=== PATIENT | female | born 1975 | race Caucasian/White ===

== ENCOUNTER 2021-11-14 02:28 | Emergency (ER) | payer OTHER, SELFPAY ==
--- NOTE | ~2021-11-14 | CT_ITS ---
EXAMINATION: CT ABDOMEN AND PELVIS WITHOUT CONTRAST CLINICAL INFORMATION: Right upper quadrant pain. Elevated liver function tests. COMPARISON: None TECHNIQUE: Multidetector volumetric imaging was performed from the superior aspect of the liver through the pubic symphysis. Sagittal and coronal reformatted images were obtained on the technologist's workstation. This CT examination was performed using dose optimization techniques as appropriate, variously including the following: *Automated exposure control *Adjustment of mA and/or kV according to patient size (this includes techniques or standardized protocols for targeted exams where dose is matched to indication/reason for exam; i.e. extremities or head) *Use of iterative reconstruction technique DLP: 510 mGy-cm FINDINGS: LUNG BASES: The visualized lung bases are unremarkable. Evaluation limited without intravenous contrast. LIVER, GALLBLADDER, AND BILIARY TREE: Hepatomegaly, right lobe measuring 23.3 cm craniocaudal. There are innumerable hypodense lesions diffusely through the liver, involving a significant portion of the liver parenchyma. This includes a large area of confluent hypodensity in the right lobe measuring 13.5 x 9.8 cm, image 3:20 . Hounsfield measurements are greater than simple fluid. No evidence of intrahepatic or extrahepatic biliary duct dilatation. The gallbladder is unremarkable with no evidence of radiopaque gallstones, gallbladder wall thickening, or obvious pericholecystic inflammatory changes. PANCREAS: Grossly unremarkable. No inflammatory changes seen. SPLEEN: Unremarkable. ADRENAL GLANDS: The right adrenal gland is not well seen. Slightly bulky appearance of the left adrenal gland. KIDNEYS AND URETERS: There is a 8 mm exophytic lesion in the midpole right kidney, indeterminate. Mild bilateral perinephric stranding. No renal or ureteral calculi. No hydronephrosis. BLADDER: Partially distended. There is apparent wall prominence/thickening of the anterior aspect of the urinary bladder, including seen on the sagittal sequences, which could be related to lack of distention versus other etiologies. GASTROINTESTINAL TRACT AND PERITONEUM: There is a large hypodense mass within the lower abdomen and pelvis. This measures 12.3 x 11.9 x 14.1 cm. (AP, transverse, craniocaudal). Hounsfield measurements ranging from 23-25. There are multiple foci of more hyperdense attenuation centrally within the lesion.. This includes a focus measuring 4.2 x 3.5 cm, image 3:59, Hounsfield measurements 42. The etiology of this complex mass has not been determined. The stomach is partially distended. No dilated small or large bowel loops is seen. No free fluid. The appendix is not clearly visualize. ABDOMINAL WALL: No significant hernia is appreciated. LYMPH NODES: No enlarged lymph nodes identified in the retroperitoneum, pelvis or abdomen. VASCULAR: Normal caliber aorta. Scattered atherosclerotic calcification. PELVIC VISCERA: Uterus is within limits for CT. 2.1 cm cystic focus in the left adnexa, probably ovarian in nature. OSSEOUS STRUCTURES: No acute or suspicious osseous abnormality seen. CT/CT abdomen pelvis wo con IMPRESSION: 1. Hepatomegaly. Innumerable hypodense lesions diffusely through the liver. Etiology of the lesion does not been determined. Differential considerations are broad including neoplastic etiologies. Further workup is needed. Recommend further evaluation with MRI without and with contrast. 2. There is a large complex hypodense mass in the abdomen and pelvis measuring 12.3 x 11.9 x 14.1 cm, with Hounsfield measurements greater than simple fluid. There are slightly more hyperdense areas present within this, described above. This of indeterminate etiology, and further evaluation is recommended. Further workup is needed. Recommend further evaluation with MRI without and with contrast. 3. There is a 2.1 cm cystic focus in the left adnexa probably ovarian in nature. 4. Indeterminate 8 mm right renal exophytic lesion. 5. Apparent wall thickening of the anterior aspect of the urinary bladder. This result was discussed with Dr. Franklin at 8:12 AM on 11/14/2021 and it was ascertained that the content and urgency of the report was understood at the time of direct communication. Fleischner guidelines were followed.
[2021-11-14 02:31] VITALS: BP 150/79; PULSE 120; RESP 20; TEMP 36.2; O2SAT 100; BMI 30.7
--- NOTE | 2021-11-14 03:39 | ED_ITS ---
HPI - Abdominal Pain General Chief Complaint: Abdominal Pain Stated Complaint: growth on abdomen for 3 months, pain on ribs Time Seen by Provider: 11/14/21 03:31 Source: patient Mode of arrival: ambulatory Limitations: no limitations History of Present Illness HPI narrative: Patient comes emergency room complaining of abdominal distension for 3 months. Patient states another pressure is causing her to have rib discomfort. Patient states that she has not had any nausea vomiting or diarrhea, no UTI symptoms. H owever, patient states that she drinks anywhere from 6 to 12 beers every day, states that this has been ongoing most of her life. Patient denies any diagnosis of cirrhosis. And drugs Related Data Allergies Allergy/AdvReac Type Severity Reaction Status Date / Time No Known Allergies Allergy Verified 11/14/21 02:39 Review of Systems Review of Systems Constitutional : No Weight loss, No Fever, No Chills, No Night Sweats, No Fatigue, No Malaise ENT/Mouth : No Hearing loss, No Ear Pain, No Nasal Congestion, No Sinus Pain, No Hoarseness, No sore throat, No Rhinorrhea, No Swallowing Difficulty Eyes: No Eye Pain, No Swelling, No Redness, No Foreign Body, No Discharge, No Vision Changes Cardiovascular : No Chest Pain, No SOB, No Dyspnea on Exertion, No Orthopnea, No Edema, No Palpitations Respiratory : No Cough, No Sputum, No Wheezing, No Smoke Exposure, No Dyspnea Gastrointestinal : No Nausea, No Vomiting, No Diarrhea, No Constipation, complaining of abdominal distension, No Hematochezia, No Melena Genitourinary : no irregular bleeding, No Dysuria, No Urinary Frequency, No Hematuria, No Urinary Incontinence, No Urgency, No Flank Pain, No Urinary Flow Changes, No Hesitancy Musculoskeletal : No joint pain, No Myalgias, No Joint Swelling Skin : No Skin Lesions, No rash Neuro : No Weakness, No Numbness, No Paresthesias, No Loss of Consciousness, No Dizziness, No Headache Psych : No Anxiety/Panic, No Depression, No SI/HI/AH/VH, No Social Issues, Heme/Lymph: No Bruising, No Bleeding,No Lymphadenopathy Endocrine : No Polyuria, No Polydipsia, No Temperature Intolerance Physical Exam Verdana 4l Vital Signs: Verdana 4d Verdana 4d Vital Signs: Verdana 4d Verdana 4Bd Last Vital Signs Verdana 4d Tie Buyer New 4d Tie Buyer New 4d Temp 98.3 F 11/14/21 05:40 Tie Buyer New 4d Pulse 112 H 11/14/21 05:40 Tie Buyer New 4d Resp 19 11/14/21 05:40 BP 128/72 11/14/21 05:40 Pulse Ox 98 11/14/21 05:40 BMI result Body Mass Index 30.7 Const: Other: Appearance: Alert. Oriented X3. No acute distress. Eyes: Pupils equal, round and reactive to light. ENT: Pharynx normal. Neck: Normal inspection. Neck supple. No lymph nodes noted. No crepitus CVS: Normal heart rate and rhythm. Pulses normal. Normal S1 and S2 Respiratory: No respiratory distress. Breath sounds normal. No Wheezing. No rales Abdomen: Moderately distended, nontender, the liver seems to be fairly enlarged. Bedside ultrasound shows no significant amount of ascites that could possibly be drained and the liver looks nodulare Skin: Skin warm and dry. Normal skin color. Normal skin turgor. Extremities: No lower extremity edema. No Lacerations. No Rash Neuro: Oriented X 3. No motor deficit. No sensory deficit. Moving all extermities. No slurred speech. Course Course Course Narrative: I discussed with the patient that her hemoglobin is 7.0. Patient states that she is known to be anemic. Patient states that at this time she does not want to be transfused, declined blood transfusion. Patient denies heavy vaginal bleeding. Guaiac stool test negative. Abdominal CT scan pending. Patient will likely need Gastroenterology follow-up. Given the appearance of the liver on bedside ultrasound and the LFT elevation, it is likely the patient has cirrhosis Sign-out given to Dr. Pascual [facility] - Abdominal Pain Lab Data Result diagrams: 11/14/21 Unknown 11/14/21 Unknown Labs: Lab Results 11/14/21 11/14/21 11/14/21 Range/Units 04:52 05:12 Unknown WBC 13.9 H (4.8-10.8) X10*3/uL RBC 3.32 L (4.20-5.50) X10*6/uL Hgb 7.0 L* (12.0-16.0) g/dl Hct 25.3 L (37.0-47.0) % MCV 76.2 L (80.0-98.0) fL MCH 21.1 L (27.0-33.0) pg MCHC 27.7 L (31.0-35.0) g/dl RDW 21.1 H (11.0-16.0) % Plt Count 419 H (160-400) X10*3/uL MPV 9.9 (9.4-12.3) fL Immature Gran % (Auto) 1.2 H (0.0-0.4) % Neut % (Auto) 81.5 H (45-73) % Lymph % (Auto) 9.2 L (20-40) % Camp % (Auto) 5.8 (2-11) % Eos % (Auto) 0.9 (0-4) % Baso % (Auto) 1.4 (0-2) % Lymph # (Auto) 1.3 (1.2-4.9) X10*3/uL Camp # (Auto) 0.8 (0.1-1.2) X10*3/uL Eos # (Auto) 0.1 (0.0-0.4) X10*3/uL Baso # (Auto) 0.2 (0.0-0.2) X10*3/uL Abs Immat Gran (auto) 0.16 H (0.00-0.03) X10*3/uL Absolute Neuts (auto) 11.3 H (2.0-8.3) x10*3/uL Absolute Nucleated RBC 0.030 H (0.0-0.012) X10*3/uL Nucleated RBC % (auto) 0.2 (0.0-0.2) /100WBC Sodium (135-145) mmol/L Potassium (3.3-5.1) mmol/L Chloride (96-108) mmol/L Carbon Dioxide (22-29) mmol/L Anion Gap (12-20) BUN (9-16) mg/dL Creatinine (0.5-1.4) mg/dL Estim Creat Clear Calc Estimated GFR Random Glucose (60-115) mg/dL Calcium (8.4-10.2) mg/dL Total Bilirubin (0.0-1.0) mg/dL Direct Bilirubin (0.0-0.5) mg/dL AST (5-31) U/L ALT (0-31) U/L Alkaline Phosphatase (39-117) U/L Total Protein (6.5-8.0) g/dL Albumin (3.5-5.0) g/dL Lipase (8-78) U/L Stool Occult Blood NEGATIVE (NEGATIVE) Blood Type O Positive Antibody Screen NEGATIVE 11/14/21 Range/Units Unknown WBC (4.8-10.8) X10*3/uL RBC (4.20-5.50) X10*6/uL Hgb (12.0-16.0) g/dl Hct (37.0-47.0) % MCV (80.0-98.0) fL MCH (27.0-33.0) pg MCHC (31.0-35.0) g/dl RDW (11.0-16.0) % Plt Count (160-400) X10*3/uL MPV (9.4-12.3) fL Immature Gran % (Auto) (0.0-0.4) % Neut % (Auto) (45-73) % Lymph % (Auto) (20-40) % Camp % (Auto) (2-11) % Eos % (Auto) (0-4) % Baso % (Auto) (0-2) % Lymph # (Auto) (1.2-4.9) X10*3/uL Camp # (Auto) (0.1-1.2) X10*3/uL Eos # (Auto) (0.0-0.4) X10*3/uL Baso # (Auto) (0.0-0.2) X10*3/uL Abs Immat Gran (auto) (0.00-0.03) X10*3/uL Absolute Neuts (auto) (2.0-8.3) x10*3/uL Absolute Nucleated RBC (0.0-0.012) X10*3/uL Nucleated RBC % (auto) (0.0-0.2) /100WBC Sodium 138 (135-145) mmol/L Potassium 4.4 (3.3-5.1) mmol/L Chloride 103 (96-108) mmol/L Carbon Dioxide 18 L (22-29) mmol/L Anion Gap 21 H (12-20) BUN 6 L (9-16) mg/dL Creatinine 0.67 (0.5-1.4) mg/dL Estim Creat Clear Calc 109.8 Estimated GFR > 60 Random Glucose 125 H (60-115) mg/dL Calcium 9.5 (8.4-10.2) mg/dL Total Bilirubin 0.4 (0.0-1.0) mg/dL Direct Bilirubin 0.2 (0.0-0.5) mg/dL AST 276 H (5-31) U/L ALT 50 H (0-31) U/L Alkaline Phosphatase 364 H (39-117) U/L Total Protein 7.5 (6.5-8.0) g/dL Albumin 4.0 (3.5-5.0) g/dL Lipase 42 (8-78) U/L Stool Occult Blood (NEGATIVE) Blood Type Antibody Screen Discharge Plan Discharge Clinical Impression: Cirrhosis Patient Disposition: Still a Patient [facility] Past Medical History Medical History (Updated 11/14/21 @ 06:12 by Anne Marie Lin MD) Alcohol abuse No known health problems Social History Social History Patient Tobacco Use Status: Current everyday Tobacco user Use of substances other than those prescribed or required for medical reasons: No Advance Directives: No Patient : No
[2021-11-14 04:03] LABS: MANUAL DIFF FLAG NO
[2021-11-14 04:04] LABS: Basophils Absolute Auto 0.2 X10*3/uL (0.0-0.2); Basophils Percent Auto 1.4 % (0-2); Eosinophils Absolute Auto 0.1 X10*3/uL (0.0-0.4); Eosinophils Percent Auto 0.9 % (0-4); Hematocrit 25.3 % (37.0-47.0); Imm Gran Abs Auto 0.16 X10*3/uL (0.00-0.03); Imm Gran Pct Auto 1.2 % (0.0-0.4); Lymphocytes Absolute Auto 1.3 X10*3/uL (1.2-4.9); Lymphocytes Percent Auto 9.2 % (20-40); Mean Corpuscular HGB Conc 27.7 g/dl (31.0-35.0); Mean Corpuscular Hemoglobin 21.1 pg (27.0-33.0); Mean Corpuscular Volume 76.2 fL (80.0-98.0); Mean Platelet Volume 9.9 fL (9.4-12.3); Monocytes Absolute Auto 0.8 X10*3/uL (0.1-1.2); Monocytes Percent Auto 5.8 % (2-11); NRBC Pct Auto 0.2 /100WBC (0.0-0.2); Neutrophils Absolute Auto 11.3 x10*3/uL (2.0-8.3); Neutrophils Percent Auto 81.5 % (45-73); Platelet Count 419 X10*3/uL (160-400); Red Blood Count 3.32 X10*6/uL (4.20-5.50); Red Cell Distribution Width 21.1 % (11.0-16.0); White Blood Count 13.9 X10*3/uL (4.8-10.8)
[2021-11-14 04:30] LABS: Alanine Aminotransferase 50 U/L (0-31); Alkaline Phosphatase 364 U/L (39-117); Anion Gap 21 (12-20); Aspartate Amino Transferase 276 U/L (5-31); Bilirubin Direct 0.2 mg/dL (0.0-0.5); Bilirubin Total 0.4 mg/dL (0.0-1.0); Blood Urea Nitrogen 6 mg/dL (9-16); Calcium 9.5 mg/dL (8.4-10.2); Carbon Dioxide 18 mmol/L (22-29); Chloride 103 mmol/L (96-108); Creatinine Clr Calc Pharmacy 109.8; Estimated Glomerular Filt Rate > 60; Glucose Random 125 mg/dL (60-115); Lipase 42 U/L (8-78); Potassium 4.4 mmol/L (3.3-5.1); Sodium 138 mmol/L (135-145); Total Protein 7.5 g/dL (6.5-8.0)
[2021-11-14 05:19] LABS: OBS Int Ctl Valid YES; OBS1 NEGATIVE (NEGATIVE)
[2021-11-14 05:40] VITALS: BP 128/72; PULSE 112; RESP 19; TEMP 36.8; O2SAT 98
--- NOTE | 2021-11-14 06:42 | PC.NURSE ---
pt is aware she need blood but at this time is refusing blood transfusion. provider is aware.
--- NOTE | 2021-11-14 06:43 | PC.NURSE ---
attempt to collect urine pt unable to void.
[2021-11-14 08:00] VITALS: BP 169/83; PULSE 120; RESP 18; TEMP 36.8; O2SAT 97
[2021-11-14 12:26] LABS: Iron 23 mcg/dL (30-160); Percent Iron Saturation 5 % (15-50); Total Iron Binding Capacity 503 mcg/dL (228-428); Unsaturated Iron Binding 480 ug/dL
[2021-11-14 12:57] LABS: Ferritin 74 ng/mL (10-250)
[2021-11-14 13:00] LABS: Folate 7.5 ng/mL (> or = 4.0); Vitamin B12 456 pg/mL (200-900)
[2021-11-14 13:31] LABS: Lactate Dehydrogenase 3646 U/L (122-220)
[2021-11-17 07:27] LABS: CA-125 84 U/mL (<35)
== END 2021-11-14 09:54 | disposition home or self-care (01) ==
PROVIDERS: Emergency Medicine; Internal Medicine Medical Oncology; Emergency Provider Emergency Medicine Emergency Medical Services
DX: R19.00 Intra-abdominal and pelvic swelling, mass and lump, unspecified site (principal); K76.9 Liver disease, unspecified; K74.60 Unspecified cirrhosis of liver; D64.9 Anemia, unspecified; R79.89 Other specified abnormal findings of blood chemistry; F17.200 Nicotine dependence, unspecified, uncomplicated; F10.10 Alcohol abuse, uncomplicated
CPT/HCPCS: 36415; 74176; 80048; 80076; 82272; 82378; 82607; 82728; 82746; 83540; 83615; 83690; 85025; 86304; 86850; 86900; 86901; 99284

== ENCOUNTER 2021-11-15 14:04 | Day surgery (SDC) | payer OTHER, SELFPAY ==
[2021-11-15] VITALS (7 sets, daily range): BP systolic 122–134; BP diastolic 58–68; PULSE 108–116; RESP 20; TEMP 37.2–37.3; O2SAT 94–96; BMI 23.6
--- NOTE | ~2021-11-15 | US_ITS ---
EXAMINATION: ULTRASOUND-GUIDED LIVER BIOPSY CLINICAL INFORMATION: Liver lesions. COMPARISON: Previous CT of the abdomen and pelvis from yesterday. TECHNIQUE: Procedure and risks and benefits including bleeding and infection were discussed with the patient and informed consent was obtained. The right upper quadrant was prepped and draped in the usual sterile fashion. The skin and soft tissues were anesthetized with 1% lidocaine plain. Using ultrasound guidance and a coaxial system, access to a lesion in the right lobe of the liver was obtained. 5 x 20 gauge core biopsies were obtained. There is no complication. The patient received Versed 3 mg and fentanyl 150 mcg intravenously during the procedure. Total sedation time was 20 minutes. FINDINGS: There is a 6 cm hyperechoic lesion in the right lobe of the liver that was targeted for biopsy. US/US biopsy liver IMPRESSION: Ultrasound-guided liver biopsy.
[2021-11-15 15:09] LABS: Prothrombin Time 11.8 SEC (9.9-13.0)
[2021-11-15 15:12] LABS: Partial Thromboplastin Time 27.6 SEC (24.1-38.0)
--- NOTE | 2021-11-15 16:19 | HO.RADPN ---
RADIOLOGY Narrative Narrative: Right lobe liver biopsy using coaxial system. 4 20 g core biopsies obtained. No complication.
[2021-11-15] MEDS: Lidocaine HCl 1 % MPF 5 ML VIAL 4 ML SUBCUT (16:21)
== END 2021-11-15 18:27 | disposition home or self-care (01) ==
PROVIDERS: Radiology Diagnostic Radiology; Visit Provider Internal Medicine Medical Oncology
DX: K76.9 Liver disease, unspecified (principal); F10.10 Alcohol abuse, uncomplicated; D64.9 Anemia, unspecified; F17.210 Nicotine dependence, cigarettes, uncomplicated
CPT/HCPCS: 36415; 47000; 76942; 85610; 85730; 88307; 88313; 88341; 88342; 88360; 99152; 99153; J2250; J3010

== ENCOUNTER 2021-12-05 13:06 | Outpatient (REF) | payer OTHER, SELFPAY ==
--- NOTE | ~2021-12-05 | CT_ITS ---
EXAMINATION: CT CHEST WITH CONTRAST CLINICAL INFORMATION: Liver lesions. Small cell cancer. COMPARISON: Previous chest x-ray most recent September 2015 TECHNIQUE: Multidetector volumetric CT imaging of the chest was obtained after the administration of 85 mL of Omnipaque 350 intravenous contrast without immediate adverse reactions. Axial MIP volume rendering provided. Sagittal and coronal reformatted images were obtained. This CT examination was performed using dose optimization techniques as appropriate, variously including the following: *Automated exposure control *Adjustment of mA and/or kV according to patient size (this includes techniques or standardized protocols for targeted exams where dose is matched to indication/reason for exam; i.e. extremities or head) *Use of iterative reconstruction technique DLP: 150 mGy-cm FINDINGS: LUNGS: There is a mass and secondary tarsal collapse or atelectasis of the left upper lobe. Much of this represents a central mass versus atelectasis is uncertain. Best estimate of size is 4.1 x 5.4 cm in transverse and AP dimension axial image 21 series 3 and 4.7 cm in longitudinal dimension axial image 27 series 6. This extends centrally to the left pulmonary hilum. There is narrowing of the left upper lobe bronchi. This bulges the fissure. There is scarring or atelectasis in the right upper lobe. MEDIASTINUM: There are multiple enlarged mediastinal lymph nodes. Largest mediastinal node is a right paratracheal and precarinal lymph node measuring 3.4 cm in short axis axial image 19 series 3. There are enlarged left hilar lymph nodes largest measuring 2 cm in short axis axial image 22 series 3. No right hilar adenopathy is seen. There is question of enlarged left internal mammary lymph node versus mediastinal lymph node or mass measuring 1.5 x 2 cm axial image 15 series 3. The heart does not appear enlarged. There is no pericardial effusion. The thoracic aorta is normal in caliber. There is narrowing of the left upper lobe pulmonary artery from the mass. PLEURA: There is no pleural effusion. No pleural mass or thickening. AXILLA: No chest wall mass or enlarged axillary lymph nodes are seen. UPPER ABDOMEN: See CT of the abdomen and pelvis of the same day OSSEOUS STRUCTURES: There is a subcentimeter faintly sclerotic lesion in the right T11 vertebral body CT/CT chest w con IMPRESSION: Large central left upper lobe mass and partial left upper lobe atelectasis. Enlarged mediastinal and left hilar lymph nodes. Subcentimeter faintly sclerotic lesion in the right T11 vertebral body questionable for metastatic disease. Fleischner guidelines were followed.
--- NOTE | ~2021-12-05 | CT_ITS ---
EXAMINATION: CT ABDOMEN AND PELVIS WITH CONTRAST CLINICAL INFORMATION: Metastatic small cell lung cancer. Ovarian mass. COMPARISON: Previous CT of the abdomen and pelvis 11/14/2021 TECHNIQUE: Multidetector volumetric images were obtained from the superior aspect of the liver through the pubic symphysis following administration 85 mL of Omnipaque 350 intravenous contrast. Sagittal and coronal reformatted images were obtained on the technologist's workstation. Oral contrast: Yes This CT examination was performed using dose optimization techniques as appropriate, variously including the following: *Automated exposure control *Adjustment of mA and/or kV according to patient size (this includes techniques or standardized protocols for targeted exams where dose is matched to indication/reason for exam; i.e. extremities or head) *Use of iterative reconstruction technique DLP: 340 mGy-cm FINDINGS: LUNG BASES: The visualized lung bases are unremarkable. LIVER, GALLBLADDER, AND BILIARY TREE: The liver is enlarged. There are innumerable low-attenuation liver lesions suggestive of metastatic disease. Largest lesion in the left lobe measures 5 x 6 cm axial image 41 series 3. Largest lesion in the right lobe measures 6.4 x 7.4 cm axial image 32 series 3. This does not appear appreciably changed from previous exam 11/14/2021. Gallbladder is not seen. There is no biliary duct dilatation. PANCREAS: Unremarkable. SPLEEN: Unremarkable. ADRENAL GLANDS: Unremarkable. KIDNEYS AND URETERS: There is a 1 cm lesion exophytic to the lateral right kidney. Hounsfield units following contrast measure 50 and this is not compatible with a simple cyst. Appearance is concerning for metastatic disease. There is similar finding seen on the left with 8 mm lesion exophytic to the lateral left kidney axial image 32 series 3 there are bilateral small perineal nodules in the perinephric fat suggestive of metastatic metastatic disease.. BLADDER: Not optimally distended. GASTROINTESTINAL TRACT: The small and large bowel are unremarkable. The appendix is not seen. The stomach is unremarkable. ABDOMINAL WALL: There is a 1 cm nodule just deep to the right lower abdominal wall just superior to the pubic symphysis axial image 81 series 3 worrisome for peritoneal disease. No hernia is seen. LYMPH NODES: There are small retroperitoneal lymph nodes in the abdomen. No enlarged lymph nodes are seen. VASCULAR: There is evidence of mild atherosclerotic disease. PELVIC VISCERA: The uterus is normal appearing. The complex cystic large right ovarian mass does not appear appreciably changed measuring 15 cm. There is a multi loculated or complex cystic lesion in the left adnexa posterior to the uterus. There may be some surrounding ascites and measuring this lesion is difficult. Best estimate lesion size is a 3.4 x 6.2 cm axial image 78 series 3. There is a 2 cm soft tissue mass in the right posterior pelvis axial image 81 series 3 also concerning for peritoneal disease. OSSEOUS STRUCTURES: There is a 5 mm lytic lesion or lucency in the right iliac bone axial image 64 series 3. No other focal bone lesion is seen. CT/CT abdomen pelvis w con IMPRESSION: Enlarged liver with innumerable low-attenuation liver lesions suggestive of metastatic disease. Bilateral renal lesions and perinephric nodules also most likely representing metastatic disease. A primary renal neoplasm cannot be excluded with certainty. Soft tissue nodules just deep to the low right anterior abdominal wall superior to the pubic symphysis and at 2 cm lesion in the right pelvis suggestive of peritoneal disease. Bilateral complex cystic ovarian lesions. These do not appear appreciably changed from 11/14/2021 exam. Differential would include metastatic disease to the ovaries and primary ovarian neoplasm. Probable small amount of ascites in the pelvis. Fleischner guidelines were followed.
[2021-12-05] MEDS: Barium Sulfate Oral (Mocha) 450 ML ORAL.SUSP 900 ML PO (15:55)
[2021-12-05] MEDS: iohexoL 350 MG/ML 100 ML INFUS..BTL 85 ML IV (15:56)
== END 2021-12-05 13:07 | disposition home or self-care (01) ==
LOC: HO.CT 13:06
PROVIDERS: Visit Provider Internal Medicine Medical Oncology
DX: K76.9 Liver disease, unspecified (principal); N83.8 Other noninflammatory disorders of ovary, fallopian tube and broad ligament; C34.92 Malignant neoplasm of unspecified part of left bronchus or lung
CPT/HCPCS: 71260; 74177; Q9967

== ENCOUNTER 2021-12-11 16:17 | Emergency (ER) | payer OTHER, SELFPAY ==
[2021-12-11] VITALS (8 sets, daily range): BP systolic 111–128; BP diastolic 60–70; PULSE 104–116; RESP 14–22; TEMP 36.7–36.8; O2SAT 93–95; BMI 26.9
--- NOTE | ~2021-12-11 | US_ITS ---
EXAMINATION: US VENOUS ULTRASOUND WITH DOPPLER LOWER EXTREMITY, BILATERAL CLINICAL INFORMATION: Ovarian cancer with leg edema COMPARISON: CT abdomen pelvis 12/05/2021 TECHNIQUE: Ultrasound of the deep veins is performed from the hip to the calf with compression sonography and color and pulse Doppler assessment. Spectral analysis with color-flow imaging is performed. FINDINGS: RIGHT: There is normal venous compression and respiratory variation and augmented flow. The visualized common femoral vein, superficial femoral vein, profunda femoral vein, popliteal vein, and the trifurcation region shows no evidence of deep venous thrombosis. There is no significant popliteal fossa cyst. There is soft tissue edema in the calf soft tissues. LEFT: There is normal venous compression and respiratory variation and augmented flow. The visualized common femoral vein, superficial femoral vein, profunda femoral vein, popliteal vein, and the trifurcation region shows no evidence of deep venous thrombosis. There is no significant popliteal fossa cyst. There is soft tissue edema in the calf soft tissues. If the patient's symptoms persist, followup ultrasound in 5 days 7 days might be of value to exclude proximal propagation from a non-visualized calf vein. US/US venous duplex LE BI IMPRESSION: No DVT demonstrated in the bilateral lower extremity.
--- NOTE | 2021-12-11 16:34 | ED_ITS ---
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 and kidney symptoms for last 4 months final diagnosis was made on 11/14 with chronic anemia received blood transfusion last month sent by oncologist for hemoglobin of 6.1 patient feel tired and weak also complaining of increased leg swelling for last few days patient also does have a lung lesion possible small cell carcinoma of lung Related Data Previous Rx's Medication Instructions Recorded lorazepam 0.5 mg tablet (Ativan) 0.5 mg PO BEDTIME PRN #30 tab 11/15/21 ondansetron 8 mg disintegrating 8 mg PO Q8H #50 tab 11/15/21 tablet oxycodone 5 mg tablet 5 mg PO BID PRN #30 tab 11/24/21 oxycodone 5 mg tablet 5 mg PO Q4H PRN #42 tab 12/07/21 ferrous sulfate 324 mg (65 mg 324 mg PO DAILY #90 tab 12/11/21 iron) tablet,delayed release furosemide 20 mg tablet (Lasix) 20 mg PO QAM #30 tab 12/11/21 Allergies Allergy/AdvReac Type Severity Reaction Status Date / Time No Known Allergies Allergy Verified 12/11/21 15:38 Review of Systems Review of Systems: Yes all other systems are reviewed and are negative PMFSH Past Medical History Medical History Alcohol abuse Female bladder prolapse No known health problems Surgical History History of Family History Family History Mother Breast cancer Sister Uterine cancer Social History Social History Household Members: Children Housing: Apartment Are you a primary health care administrator to a significant other at home: No Do you presently have visiting nurse or other home services: No Patient Tobacco Use Status: Current everyday Tobacco user Cigarette Packs Per Day: 1 Advance Directives: No Advance Directives Information Provided: No service: No Current occupational status: employed 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 Oriented X3. No acute distress. Eyes: Pallor++ ENT: Pharynx normal. Oral Mucosa moist Neck: Normal inspection. Neck supple. CVS: Normal heart rate and rhythm. Pulses normal. Respiratory: No respiratory distress. Equal air entry bilateral, no wheezing/rales/rhonchi Abdomen: Soft distended tenderness and right upper quadrant, Bowel sounds are present hepatomegaly, no CVA tenderness Skin: Skin warm and dry. Normal skin color. Normal skin turgor. Extremities:4+ lower extremity edema. No calf tenderness Eben sign neg Neuro: Oriented X 3. MDM - Recheck/Abnormal Lab/Rx MDM Narrative Medical decision making narrative: Patient's severe anemia of chronic disease with history of ovarian cancer and Mets to liver possible lung cancer sent by oncologist for blood transfusion patient was given 2 units of blood in the ER feels much better also has swelling of the legs will discharge her on Lasix, venous Doppler negative for DVT Medical Records Attestation: I reviewed the patient's medical records. Lab Data Attestation: I reviewed the patient's lab results. Labs: Lab Results 12/11/21 12/11/21 Range/Units 16:45 16:46 D-Dimer High Sensitivty 928 NG/ML Blood Type O Positive Antibody Screen NEGATIVE Crossmatch See Detail Discharge Plan Discharge Clinical Impression: Anemia Qualifiers: Anemia type: other cause Other causes of anemia: other cause, not classified Qualified Code(s): D64.89 - Other specified anemias Patient Disposition: Home, Self-Care Instructions: Anemia (ED) Additional Instructions: Follow-up with your oncologist Start taking iron pills daily And water pill for increased leg swelling Prescriptions: New ferrous sulfate 324 mg (65 mg iron) tablet,delayed release (DR/EC) 324 mg PO DAILY Qty: 90 0RF furosemide [Lasix] 20 mg tablet 20 mg PO QAM Qty: 30 0RF No Action ondansetron 8 mg Tablet,Disintegrating 8 mg PO Q8H Qty: 50 5RF lorazepam [Ativan] 0.5 mg Tablet 0.5 mg PO BEDTIME PRN (Reason: Anxiety) Qty: 30 0RF oxycodone 5 mg Tablet 5 mg PO BID PRN (Reason: Breakthrough Pain, Severe) Qty: 30 0RF oxycodone 5 mg Tablet 5 mg PO Q4H PRN (Reason: Breakthrough Pain, Moderate) Qty: 42 0RF Interventions: ED Discharge Assessment Last Done: 12/12/21 00:11 Discharge Date/Time: 12/12/21 00:11
[2021-12-11 17:10] LABS: D Dimer High Sensitivity 928 NG/ML
[2021-12-11] MEDS: LORazepam 2 MG/ML VIAL 1 MG IVPUSH (17:14)
[2021-12-11] MEDS: Furosemide 20 MG/2 ML VIAL IVPUSH (21:33)
[2021-12-12] MEDS: Ferrous Sulfate 324 MG TABLET.DR PO (00:12)
== END 2021-12-12 00:11 | disposition home or self-care (01) ==
PROVIDERS: Emergency Provider Internal Medicine
DX: C56.9 Malignant neoplasm of unspecified ovary (principal); D63.0 Anemia in neoplastic disease; C78.7 Secondary malignant neoplasm of liver and intrahepatic bile duct; C79.00 Secondary malignant neoplasm of unspecified kidney and renal pelvis; R53.1 Weakness; R60.0 Localized edema; F17.200 Nicotine dependence, unspecified, uncomplicated
CPT/HCPCS: 36415; 36430; 85379; 86850; 86900; 86901; 86923; 93970; 96374; 96375; 99283; 99285; J1940; J2060; P9016

== ENCOUNTER 2021-12-19 10:25 | Day surgery (SDC) | payer OTHER, SELFPAY ==
[2021-12-19] VITALS (10 sets, daily range): BP systolic 106–119; BP diastolic 54–75; PULSE 94–107; RESP 14–18; TEMP 36.3–36.7; O2SAT 94–97; BMI 26.9
--- NOTE | 2021-12-19 11:44 | HO.ANESPROP2 ---
HPI - Anesthesia Eval Consult details Narrative: Liver lesion, anemia PMFSH Active Problems Active Problems: All Active Problems (Updated 12/13/21 @ 00:00 by Taya Parks) Liver lesion (Acute) Anemia (Acute) Past Medical History Medical History Alcohol abuse Female bladder prolapse No known health problems Family History Family History (Updated 12/18/21 @ 14:32 by Gilda Aldana CMA) Mother Breast cancer Sister Uterine cancer Paternal Grandmother Cancer Father Diabetes Father HTN (hypertension) Family history of problems with anesthesia: No Surgical History Surgical History History of History of Problems with Anesthesia: No Social History Social History (Updated 12/18/21 @ 14:33 by Gilda Aldana CMA) Household Members: Children Housing: Apartment Are you a primary early breastfeeding care specialist to a significant other at home: No Do you presently have visiting nurse or other home services: No Patient Tobacco Use Status: Current everyday Tobacco user Tobacco use type: Cigarette Cigarette Packs Per Day: 1 Cigarettes Per Day: 20.0 Use of substances other than those prescribed or required for medical reasons: No Are you DNR?: No Advance Directives: No Advance Directives Information Provided: Yes Advance Directives on File: No service: No Current occupational status: employed 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 Allergies Allergy/AdvReac Type Severity Reaction Status Date / Time No Known Allergies Allergy Verified 12/18/21 14:33 Exam Exam Date and Time: December 19, 2021 1144 Height,Weight and Vital Signs: Height 5 ft 5 in Weight 73.482 kg Last Vital Signs Temp 97.8 F 12/19/21 10:44 Pulse 105 H 12/19/21 10:44 Resp 18 12/19/21 10:44 BP 118/71 12/19/21 10:44 Pulse Ox 96 12/19/21 10:44 Airway Mallampati Class: II TM Dist: >3cm Neck ROM: Full Loose/Missing/Broken Teeth: Yes Heart: [id number] Lungs: cta b/l Assessment and Plan Assessment Anesthesia Assessment: Anesthesia Plan Discussed and Chart Reviewed Final Anesthetic Review Family History of Problems with Anesthesia: No History of Problems with Anesthesia: No NPO: Yes ASA Class: III Final Preanesthetic Review: No Changes in Pt Med Stat, Meds/Allgs Chart Reviewed, Consent Obtained/Reviewed and Anes Risks/Benef Reviewed Patient Risk: Intermediate Procedure Risk: Low Assessment/Block/Sedation in SS: Assess/Block/Sedation-SS Anesthetic Plan Anesthetic Plan: MAC: and Agree w/ Assess. and Plan Disposition: Standard PACU
[2021-12-19 11:58] LABS: HCG Quantitative < 2 mIU/mL
[2021-12-19 14:18] LABS: Bone Marrow SEE SEPARATE REPORT
--- NOTE | 2021-12-19 14:50 | PM.HEMONCBM ---
Bone Marrow Aspiration - Bone Marrow Aspiration Procedure:: *Service Date: [12/19/21] Pre Op Diagnosis:: Anemia. Post Op Diagnosis:: Same. Surgeon:: Freida Aviles. Anesthesia:: MAC. Consent:: Informed consent obtained from the patient for the procedure. Pros and cons of biopsy explained. The patient was willing to proceed with the procedure under local anesthesia. Procedure in Detail:: *Service Date: [12/19/21] *Procedure: [Bone Marrow Aspiration & Biopsy.] *Pre Op Dx: [Anemia. Small Cell Carcinoma] *Post Op Dx: [Same.] *Surgeon: Freida Aviles. The patient was positioned on left side and the left posterior superior iliac spine prepped and draped. Under aseptic precautions, under MAC anaesthesia and 2 ml of 1% lidocaine used for local anesthesia. Bone marrow aspirate was performed. With the Jamshidi needle, a core biopsy was obtained without any complications. Specimens were sent for Gallo stain, flow cytometry and cytogenetics. Biopsy was sent for histology. The patient tolerated the procedure well. Bandage was applied and patient was positioned on her back for 10 to 15 minutes after the procedure. The patient was advised to call us if she develops any pain or swelling at the surgical site. Follow up in 1 week.
== END 2021-12-19 17:06 | disposition home or self-care (01) ==
PROVIDERS: Anesthesiology; PCP Internal Medicine; Visit Provider Internal Medicine Medical Oncology
PROC: (CPT 38221; principal; 2021-12-19 13:10)
DX: D64.9 Anemia, unspecified (principal); K76.9 Liver disease, unspecified; K74.60 Unspecified cirrhosis of liver; C34.90 Malignant neoplasm of unspecified part of unspecified bronchus or lung; F17.210 Nicotine dependence, cigarettes, uncomplicated; F10.10 Alcohol abuse, uncomplicated; D73.1 Hypersplenism
CPT/HCPCS: 38222; 36415; 84702; 85097; 86850; 86900; 86901; 86923; 88184; 88185; 88237; 88264; 88305; 88311; 88313; 88342; J1642; J2250; J3010; P9016

== ENCOUNTER 2022-01-05 06:52 | Day surgery (SDC) | payer OTHER, SELFPAY ==
--- NOTE | ~2022-01-05 | IR_ITS ---
PROCEDURE: IR INSERTION OF TUNNEL CATHETER CLINICAL INFORMATION: Metastatic lung cancer. COMPARISON: None TECHNIQUE: Procedure and risks and benefits including bleeding, infection and pneumothorax were discussed with the patient and informed consent was obtained. All elements of maximal sterile barrier technique followed including use of cap, mask, sterile gown, sterile gloves, a sterile full body drape and hand hygiene. Also followed skin preparation with 2% chlorhexidine for cutaneous antisepsis, and sterile ultrasound preparation with sterile gel and probe cover when applicable. The right neck and upper chest were prepped and draped in the usual sterile fashion. The skin and soft tissues of the right lower neck were anesthetized with 1% lidocaine with epinephrine. A small incision was made. Using a 5-Slovak micropuncture system, right internal jugular vein access was obtained. Over an 0.018 wire, a 5-Slovak dilator was positioned in the SVC. The skin and soft tissues of the right upper anterior chest were anesthetized with 1% lidocaine with epinephrine. A small incision was made. A subcutaneous tunnel from the chest to the neck incision was anesthetized with 1% lidocaine with epinephrine. Using a tunneler, a 6.6-Slovak single-lumen catheter was tunneled from the chest to the neck incision. The catheter was attached to the port. The port and catheter were flushed. The port was positioned in the subcutaneous pocket and secured using two 2-0 nonabsorbable sutures. An 0.035 guidewire was advanced through the 5-Slovak dilator into the IVC. 5-Slovak dilator was exchanged for a 7-Slovak peel-away sheath. Using bent wire technique, catheter length was estimated and the catheter was cut. Catheter length is 20 cm. The catheter was fed through the peel-away sheath. The neck incision was closed using a 4-0 absorbable subcuticular suture. The chest incision was closed using three 3-0 absorbable interrupted sutures followed by a 4-0 running absorbable subcuticular suture. The port was accessed. The port had good blood return, flushed easily and was instilled with 5 mL heparin 100 unit per mL solution. Real-time ultrasound guidance was used to document vein patency and for needle entry. A formal ultrasound picture was recorded. FLUOROSCOPY TIME: 0.3 minutes. DAP: 30 cGy-cm2 The patient received Versed 1.5 mg and Fentanyl 75 mcg intravenously during the procedure. Total sedation time was 32 minutes. FINDINGS: There is a right internal jugular port with tip projecting over the cavoatrial junction. IR/IR us guide venous access IMPRESSION: Right internal jugular 6.6-Slovak single-lumen dignity Port-A-Cath placement.
--- NOTE | ~2022-01-05 | IR_ITS ---
PROCEDURE: IR INSERTION OF TUNNEL CATHETER CLINICAL INFORMATION: Metastatic lung cancer. COMPARISON: None TECHNIQUE: Procedure and risks and benefits including bleeding, infection and pneumothorax were discussed with the patient and informed consent was obtained. All elements of maximal sterile barrier technique followed including use of cap, mask, sterile gown, sterile gloves, a sterile full body drape and hand hygiene. Also followed skin preparation with 2% chlorhexidine for cutaneous antisepsis, and sterile ultrasound preparation with sterile gel and probe cover when applicable. The right neck and upper chest were prepped and draped in the usual sterile fashion. The skin and soft tissues of the right lower neck were anesthetized with 1% lidocaine with epinephrine. A small incision was made. Using a 5-Bolivian micropuncture system, right internal jugular vein access was obtained. Over an 0.018 wire, a 5-Bolivian dilator was positioned in the SVC. The skin and soft tissues of the right upper anterior chest were anesthetized with 1% lidocaine with epinephrine. A small incision was made. A subcutaneous tunnel from the chest to the neck incision was anesthetized with 1% lidocaine with epinephrine. Using a tunneler, a 6.6-Bolivian single-lumen catheter was tunneled from the chest to the neck incision. The catheter was attached to the port. The port and catheter were flushed. The port was positioned in the subcutaneous pocket and secured using two 2-0 nonabsorbable sutures. An 0.035 guidewire was advanced through the 5-Bolivian dilator into the IVC. 5-Bolivian dilator was exchanged for a 7-Bolivian peel-away sheath. Using bent wire technique, catheter length was estimated and the catheter was cut. Catheter length is 20 cm. The catheter was fed through the peel-away sheath. The neck incision was closed using a 4-0 absorbable subcuticular suture. The chest incision was closed using three 3-0 absorbable interrupted sutures followed by a 4-0 running absorbable subcuticular suture. The port was accessed. The port had good blood return, flushed easily and was instilled with 5 mL heparin 100 unit per mL solution. Real-time ultrasound guidance was used to document vein patency and for needle entry. A formal ultrasound picture was recorded. FLUOROSCOPY TIME: 0.3 minutes. DAP: 30 cGy-cm2 The patient received Versed 1.5 mg and Fentanyl 75 mcg intravenously during the procedure. Total sedation time was 32 minutes. FINDINGS: There is a right internal jugular port with tip projecting over the cavoatrial junction. IR/IR cvc insert tunnel w prt/supplier specialist IMPRESSION: Right internal jugular 6.6-Bolivian single-lumen dignity Port-A-Cath placement.
[2022-01-05 07:18] LABS: UPreg QC Valid YES; Urine Pregnancy NEGATIVE (NEGATIVE)
[2022-01-05 07:25] VITALS: BMI 27.4
[2022-01-05 07:27] VITALS: BP 153/89; PULSE 88; RESP 18; TEMP 36.9; O2SAT 98
[2022-01-05 07:28] LABS: Hematocrit 32.5 % (37.0-47.0); Hemoglobin 9.8 g/dl (12.0-16.0); Mean Corpuscular HGB Conc 30.2 g/dl (31.0-35.0); Mean Corpuscular Volume 86.2 fL (80.0-98.0); Red Blood Count 3.77 X10*6/uL (4.20-5.50)
[2022-01-05 07:31] LABS: WBC ABN SCTR FOR CBC 1
[2022-01-05 07:36] LABS: INTERNATIONAL NORM RATIO 1.2 (0.9-1.1); Prothrombin Time 13.5 SEC (9.9-13.0)
[2022-01-05 07:39] LABS: Partial Thromboplastin Time 34.5 SEC (24.1-38.0)
[2022-01-05 07:56] LABS: Atypical Lymphs Percent Manual 1 % (0-6); Band Neutrophils Percent 12 % (3-5); Basophils Percent Manual 5 % (0-2); Eosinophils Percent Manual 8 % (0-4); Lymphocytes Percent Manual 26 % (20-40); Monocytes Percent Manual 6 % (2-11); Neutrophils Percent Manual 42 % (45-73)
[2022-01-05 07:57] LABS: Macrocytosis 1+ (5-14) /OIF; Microcytosis 1+ (5-14) /OIF; RBC Morphology NOTED
[2022-01-05 07:58] LABS: Spherocytes 1+ (0-2) /OIF
[2022-01-05 08:00] LABS: Dohle Bodies PRESENT; Toxic Granulation PRESENT
[2022-01-05 08:01] LABS: Hypochromasia 1+ (5-14) /OIF
[2022-01-05 08:02] LABS: Basophils Abs Manual 0.1 X10*3/uL (0.0-0.2); Eosinophils Absolute Manual 0.2 X10*3/uL (0.0-0.4); Lymphocytes Absolute Manual 0.7 X10*3/uL (1.2-4.9); Monocytes Absolute Manual 0.2 X10*3/uL (0.1-1.2); Neutrophils Absolute Manual 1.4 X10*3/uL (2.0-8.3); White Blood Count 2.6 X10*3/uL (4.8-10.8)
[2022-01-05 08:03] LABS: Mean Platelet Volume 8.9 fL (9.4-12.3); Platelet Count 52 X10*3/uL (160-400)
[2022-01-05 09:08] LABS: Platelet Estimate DECREASED (NORMAL); Platelet Morphology Comment NORMAL
[2022-01-05] MEDS: Lidocaine HCl 1 % 20 ML VIAL 10 ML INFILTRATI (09:36)
[2022-01-05] MEDS: Lidocaine HCl 1%/Epi 1:100,000 20 ML VIAL INFILTRATI (09:37)
--- NOTE | 2022-01-05 09:52 | HO.RADPN ---
RADIOLOGY Narrative Narrative: Right IJ 6.6 single lumen Dignity portacath placed. Tip in SVC.
[2022-01-05 10:00] VITALS: BP 160/79; PULSE 82; RESP 18; TEMP 36.3; O2SAT 95
[2022-01-05 10:15] VITALS: BP 143/77; PULSE 88; RESP 18; O2SAT 95
[2022-01-05 10:30] VITALS: BP 135/83; PULSE 89; RESP 18; O2SAT 94
[2022-01-05 10:45] VITALS: BP 136/74; PULSE 87; RESP 18; O2SAT 95
[2022-01-05 11:00] VITALS: BP 135/75; PULSE 87; RESP 18; TEMP 36.4; O2SAT 95
== END 2022-01-05 11:11 | disposition home or self-care (01) ==
PROVIDERS: PCP Internal Medicine; Visit Provider Radiology Diagnostic Radiology
DX: Z45.2 Encounter for adjustment and management of vascular access device (principal); C34.90 Malignant neoplasm of unspecified part of unspecified bronchus or lung; C7B.02 Secondary carcinoid tumors of liver; D50.9 Iron deficiency anemia, unspecified; D73.1 Hypersplenism; F10.10 Alcohol abuse, uncomplicated; Z87.448 Personal history of other diseases of urinary system; Z79.899 Other long term (current) drug therapy; Z80.3 Family history of malignant neoplasm of breast; Z80.41 Family history of malignant neoplasm of ovary; F17.210 Nicotine dependence, cigarettes, uncomplicated
CPT/HCPCS: 36415; 36561; 76937; 81025; 85007; 85027; 85610; 85730; 99152; 99153; C1769; C1788; J0690; J1642; J2250; J3010

== ENCOUNTER → 2022-01-11 10:45 | Outpatient (REF) | payer OTHER, SELFPAY ==
--- NOTE | ~2022-01-11 | NM_ITS ---
EXAMINATION: NM BONE SCAN OF THE WHOLE BODY CLINICAL INFORMATION: Sclerotic lesion right T11 vertebral body and 5 mm lytic lesion or lucency in the right iliac bone on recent CT scans. COMPARISON: No previous bone scan or recent radiographs are available for comparison. The diagnostic CT scan of the chest, abdomen, and pelvis, dated 12/05/2021, is available for comparison. TECHNIQUE: Multiple gamma scintillation camera images of the whole body were performed 2.5 hours following the intravenous administration of 22 mCi Tc-99m MDP. FINDINGS: In the head, no significant abnormalities are present. In the thoracic cage and upper extremities, there is mildly increased activity in the right sternoclavicular joint, and this appears to be entirely in the medial aspect of the right clavicle. In the spine, there is a small focus of mildly increased activity in the left posterior elements of T7. In the pelvis, no significant abnormalities are present. In the lower extremities, no significant abnormalities are present. No other definite bony abnormalities are noted. The urinary bladder and faint visualization of both kidneys are noted. Compared to the CT scan dated 12/05/2021, the 5 mm lytic lesion or lucency in the posterior right iliac bone shows no corresponding abnormality on this bone scan. The CT scan also shows a sclerotic focus in the inferior posterior aspect of the T11 vertebral body and there is no corresponding bone scan abnormality at this site. There is no definite abnormality in the left transverse process or costovertebral junction at T7 and corresponds to mild bone scan abnormality described above at this site. There is also no CT abnormality in the medial aspect of the right clavicle. NM/NM bone scan whole body IMPRESSION: A few mild nonspecific abnormalities are noted as described above and these are all likely arthritic or traumatic in etiology. None of these abnormalities is strongly suspicious for metastatic disease.
== END ==
LOC: HO.NUCMED 10:45
PROVIDERS: Visit Provider Internal Medicine Medical Oncology
DX: C79.51 Secondary malignant neoplasm of bone (principal)
CPT/HCPCS: 78306; A9503

== ENCOUNTER 2022-02-26 15:30 | Outpatient (REF) | payer OTHER, SELFPAY ==
--- NOTE | ~2022-02-26 | CT_ITS ---
EXAMINATION: CT CHEST WITHOUT CONTRAST CLINICAL INFORMATION: Small cell lung cancer COMPARISON: Previous chest CT November 2021 TECHNIQUE: Multidetector volumetric CT imaging of the chest was done. Axial MIP volume rendering provided. Sagittal and coronal reformatted images were obtained. This CT examination was performed using dose optimization techniques as appropriate, variously including the following: *Automated exposure control *Adjustment of mA and/or kV according to patient size (this includes techniques or standardized protocols for targeted exams where dose is matched to indication/reason for exam; i.e. extremities or head) *Use of iterative reconstruction technique DLP: 109 mGy-cm FINDINGS: LUNGS: There is significant interval improvement in the left upper lobe mass/consolidation. There is residual increased soft tissue seen surrounding the left upper lobe bronchus and more peripheral linear densities in the left upper lobe. The lungs are otherwise clear. MEDIASTINUM: There is significant interval decrease in the mediastinal and left hilar lymphadenopathy. There are small residual partially calcified precarinal lymph nodes, largest measuring 1 cm in short axis axial image 22 series 3. The conglomerate right paratracheal noe mass is no longer seen. There is interval decrease in left hilar adenopathy versus central mass. There is still some residual soft tissue seen in the left hilum and surrounding the left upper lobe bronchus. The mediastinum is otherwise normal. There is a right jugular port with tip projecting over the SVC. PLEURA: There is no pleural effusion. No pleural mass or thickening. AXILLA: No lymphadenopathy. UPPER ABDOMEN: See abdominal and pelvic CT from the same day OSSEOUS STRUCTURES: Subcentimeter faintly sclerotic lesion in the right T11 vertebral body appears unchanged. There is increased sclerosis the C7 vertebral body and degenerative changes at C6-C7. This is not as well-visualized on prior November 2021 exam but may be unchanged. CT/CT chest wo con IMPRESSION: Significant interval improvement in the mass/consolidation in the left upper lobe and hilar and mediastinal lymphadenopathy from November 2021 exam. Fleischner guidelines were followed.
--- NOTE | ~2022-02-26 | CT_ITS ---
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 Sagittal and coronal reformatted images were obtained on the technologist's workstation. This CT examination was performed using dose optimization techniques as appropriate, variously including the following: *Automated exposure control *Adjustment of mA and/or kV according to patient size (this includes techniques or standardized protocols for targeted exams where dose is matched to indication/reason for exam; i.e. extremities or head) *Use of iterative reconstruction technique DLP: 314 mGy-cm FINDINGS: LUNG BASES: The visualized lung bases are unremarkable. LIVER, GALLBLADDER, AND BILIARY TREE: The liver is enlarged. There are multiple low-attenuation liver lesions suggestive of metastatic disease. Comparison with prior exam is difficult to contrast was administered however the liver appears smaller in size and appear decreased in size. There are several new areas of increased attenuation in the liver questionable for interval lesion calcification. The gallbladder is normal. There is no biliary duct dilatation. PANCREAS: Unremarkable. SPLEEN: Unremarkable. ADRENAL GLANDS: Unremarkable. KIDNEYS AND URETERS: The kidneys are normal in size, shape, and attenuation. No hydronephrosis, hydroureter, or calculi seen. No perinephric stranding. BLADDER: Not optimally distended. There is mass effect on the bladder from the pelvic mass. GASTROINTESTINAL TRACT: The small and large bowel are unremarkable. The appendix is unremarkable. There is wall thickening of the stomach. Appears new or increased from November 2021 exam. ABDOMINAL WALL: No significant hernia is appreciated. LYMPH NODES: There are no enlarged lymph nodes. There is no ascites. VASCULAR: There are small upper abdominal varices. There is evidence of atherosclerotic disease. PELVIC VISCERA: Complex cystic pelvic mass measures 11 x 13 cm in AP and transverse dimension. This is slightly changed in shape axial images measuring 13 x 12.7 cm in AP dimension November 2021. This measures 16.5 cm in longitudinal dimension not appreciably changed. This is complex cystic with small mural nodule and solid component. There is interval decrease in size in the complex cystic mass in the left anterior pelvis. This measures 2.4 x 4.8 cm axial image 73 series 3 compared to 4.2 x 6.6 cm axial image 78 series 11/16/2021 exam. The uterus is unremarkable. OSSEOUS STRUCTURES: Unremarkable. CT/CT abdomen pelvis wo con IMPRESSION: Comparison the liver is difficult without IV contrast however the liver is smaller and there is interval decrease in size and number of liver lesions. Large complex cystic midline pelvic mass extending into the lower abdomen not appreciably changed in size but slightly changed in shape. The smaller complex cystic pelvic mass in the left posterior pelvis appears decreased in size. New or increased gastric wall thickening. Fleischner guidelines were followed.
== END 2022-02-26 15:31 | disposition home or self-care (01) ==
LOC: HO.CT 15:30
PROVIDERS: PCP Internal Medicine; Visit Provider Internal Medicine Medical Oncology
DX: C34.90 Malignant neoplasm of unspecified part of unspecified bronchus or lung (principal); C79.00 Secondary malignant neoplasm of unspecified kidney and renal pelvis
CPT/HCPCS: 71250; 74176

== ENCOUNTER 2022-04-30 08:23 | Outpatient (REF) | payer OTHER, SELFPAY ==
[2022-04-30 09:12] LABS: Cholesterol 273 mg/dL; HDL Cholesterol 67 mg/dL; LDL Cholesterol Calculated 163 mg/dl; Triglycerides 215 mg/dL
[2022-04-30 09:33] LABS: TSH reflex Free T4 1.18 uIU/mL (0.32-4.0); Vitamin D 25-OH Total 23.7 ng/mL (>30)
[2022-04-30 10:00] LABS: Folate 11.2 ng/mL (> or = 4.0); Vitamin B12 241 pg/mL (200-900)
== END 2022-04-30 08:24 | disposition home or self-care (01) ==
LOC: HO.LAB 08:23
PROVIDERS: Absent Provider Nurse Practitioner Family; PCP Internal Medicine; Visit Provider Internal Medicine Medical Oncology
DX: D64.9 Anemia, unspecified (principal); C34.90 Malignant neoplasm of unspecified part of unspecified bronchus or lung; Z13.220 Encounter for screening for lipoid disorders; Z13.29 Encounter for screening for other suspected endocrine disorder
CPT/HCPCS: 36415; 80061; 82306; 82607; 82746; 84443

== ENCOUNTER 2022-05-21 07:43 | Outpatient (REF) | payer OTHER, SELFPAY ==
[2022-05-21 08:42] LABS: Hematocrit 33.9 % (37.0-47.0); Hemoglobin 11.7 g/dl (12.0-16.0); Mean Corpuscular HGB Conc 34.5 g/dl (31.0-35.0); Mean Corpuscular Hemoglobin 37.1 pg (27.0-33.0); Mean Corpuscular Volume 107.6 fL (80.0-98.0); Mean Platelet Volume 9.8 fL (9.4-12.3); Platelet Count 207 X10*3/uL (160-400); Red Blood Count 3.15 X10*6/uL (4.20-5.50); Red Cell Distribution Width 17.6 % (11.0-16.0); White Blood Count 4.5 X10*3/uL (4.8-10.8)
[2022-05-21 09:04] LABS: Alanine Aminotransferase 31 U/L (0-31); Albumin Level 4.5 g/dL (3.5-5.0); Alkaline Phosphatase 147 U/L (39-117); Anion Gap 16 (12-20); Aspartate Amino Transferase 47 U/L (5-31); Bilirubin Total 0.5 mg/dL (0.0-1.0); Blood Urea Nitrogen 6 mg/dL (9-16); Calcium 9.3 mg/dL (8.4-10.2); Carbon Dioxide 23 mmol/L (22-29); Chloride 109 mmol/L (96-108); Cholesterol 248 mg/dL; Estimated Glomerular Filt Rate > 60; Glucose Random 90 mg/dL (60-115); HDL Cholesterol 63 mg/dL; LDL Cholesterol Calculated 112 mg/dl; Potassium 3.8 mmol/L (3.3-5.1); Sodium 144 mmol/L (135-145); Total Protein 7.3 g/dL (6.5-8.0); Triglycerides 367 mg/dL
[2022-05-21 09:25] LABS: Vitamin D 25-OH Total 31.4 ng/mL (>30)
== END 2022-05-21 07:44 | disposition home or self-care (01) ==
LOC: HO.LAB 07:43
PROVIDERS: PCP Internal Medicine; Visit Provider Nurse Practitioner Family
DX: E78.5 Hyperlipidemia, unspecified (principal); R79.89 Other specified abnormal findings of blood chemistry
CPT/HCPCS: 36415; 80053; 80061; 82306; 85027

== ENCOUNTER 2022-05-28 08:43 | Outpatient (REF) | payer OTHER, SELFPAY ==
--- NOTE | ~2022-05-28 | CT_ITS ---
EXAMINATION: CT CHEST, ABDOMEN AND PELVIS WITH CONTRAST CLINICAL INFORMATION: Small cell carcinoma of lung follow-up CT COMPARISON: CT chest, abdomen and pelvis 02/26/2022 and 12/05/2021 TECHNIQUE: 5 mm thin axial and reformatted 3 mm thin sagittal and coronal images of chest, abdomen pelvis were obtained following IV 85 mL Omnipaque 350. DLP: 912 mGy-cm This CT examination was performed using dose optimization technique as appropriate, variously including the following: Automated exposure control Adjustment of MA and/or KV according to patient size(this includes techniques or standardized protocols for targeted exams where dose is matched to indication/reason for exam; extremities or head. Use of iterative reconstruction techniques. FINDINGS: CHEST: Lungs: Left upper lobe large consolidation/mass has significantly improved over time with plate-like scarring or atelectasis in the left upper lobe. There is no recurrent nodules or pulmonary consolidation in the left upper lobe. There is a punctate 3 mm new nodule, left lower lobe, axial image 300/7. A 3 mm nodule, right upper lobe adjacent to the major fissure, axial image 169/7, appears stable. A 3 mm nodule seen in the left lung apex, axial image 61/7, stable. Mediastinum: Central trachea and the bronchi are widely patent. The thyroid lobes are symmetric and normal. No abnormal-sized lymph nodes seen. The heart size and the great vessels are normal caliber. There is a right central venous port with its tip in the distal SVC. No pericardial effusion seen. There are no coronary artery calcifications. Pleura: There is no pleural thickening, plaques or effusion. Axilla: There are small shotty lymph nodes in the axilla and the lateral thoracic wall, stable. Otherwise the rest of the chest wall is unremarkable.. ABDOMEN AND PELVIS: Liver: The liver is normal size and contour. There are multiple hypodense nonenhancing lesions seen throughout the liver. The largest segment 4A lesion is 2.1 cm, segment 6, posterior hilum measures 1.8 cm. No intrahepatic ductal dilatation seen. The gallbladder is unremarkable. Spleen: The spleen is unremarkable. Pancreas: Unremarkable. Bilateral Adrenal Glands: Unremarkable. Kidneys And Ureters: Both kidney nephrograms are symmetric and normal. No radiopaque calculi, enhancing mass or hydronephrosis seen. There is 5 mm nonenhancing lesion in the midpole cortex, right kidney, probable small cyst. There is mild prominence of the right ureter, a new finding. Bladder: The bladder is compressed without wall thickening. GI tract: Oral contrast opacified colon and small bowel loops are unremarkable. Appendix is not seen. Appendix was not definitely visualized. Lymphovascular Structures: Abdominal aorta is normal caliber. No abnormal-sized retroperitoneal lymph nodes seen. Pelvis: The large complex cystic mass extending from the umbilicus with central solid lesion. The mass measures 16.0 cm in length, 9.4 cm in AP and 12.1 cm wide. There is a solid lesion in the bladder measuring approximately 5 to 6 cm wide and 3.3 cm in AP dimension. The left ovary is heterogeneous in the left adnexa measuring 4.4 x 2.6 cm, slightly larger compared to the previous study. There is no free fluid. Small uterus with small hypodense or enhancing lesion along the anterior uterus, question small fibroids, best visualized on axial image 47/15 Osseous Structures: No lytic or sclerotic process seen. CT/CT abdomen pelvis w con IMPRESSION: 1. Postsurgical changes left upper lobe. There are small pulmonary nodules. Some of the nodules appear relatively new compared to 02/26/2022. Some are minimally increased. 2. No abnormal mediastinal or axillary lymphadenopathy seen. 3. Multiple hypodense liver lesions. They appear slightly larger, however, direct comparison cannot be made due to lack of IV contrast on the last CT exam. There is a complex pelvic mass, same size as before. There is a complex left ovary. 4. Few hyperdense lesions in the anterior uterus, question small fibroids on sagittal image 47/15.
[2022-05-28] MEDS: iohexoL 350 MG/ML 100 ML INFUS..BTL 85 ML IV (11:10)
== END 2022-05-28 08:44 | disposition home or self-care (01) ==
LOC: HO.CT 08:43
PROVIDERS: PCP Internal Medicine; Visit Provider Internal Medicine Medical Oncology
DX: C34.90 Malignant neoplasm of unspecified part of unspecified bronchus or lung (principal); R91.8 Other nonspecific abnormal finding of lung field; N83.292 Other ovarian cyst, left side
CPT/HCPCS: 71260; 74177; Q9967

== ENCOUNTER 2022-05-31 09:52 | Emergency (ER) | payer OTHER, SELFPAY ==
--- NOTE | ~2022-05-31 | XR_ITS ---
EXAMINATION: XR ANKLE, RIGHT XR FOOT, RIGHT CLINICAL INFORMATION: Pain following a fall. COMPARISON: None. TECHNIQUE: AP, oblique, and lateral views of the right ankle and foot. FINDINGS: No acute fracture or dislocation. The ankle mortise is maintained. No lytic or blastic osseous lesion. No abnormal soft tissue calcification. No significant joint effusion. XR/XR foot RT min 3V IMPRESSION: No acute osseous abnormality.
--- NOTE | ~2022-05-31 | XR_ITS ---
EXAMINATION: XR LUMBAR LUMBAR SPINE XR SACRUM/COCCYX CLINICAL INFORMATION: Pain following a fall. COMPARISON: None. TECHNIQUE: AP, lateral, and coned-down views of the lumbar spine. AP and lateral views of the sacrum and coccyx. FINDINGS: Lumbar Spine: The lumbar lordosis is maintained. Minimal grade 1 anterolisthesis of L3 and L4. No acute fracture. No loss of vertebral body height. No significant loss of intervertebral disc height. Tiny multilevel anterior endplate osteophytes. No lytic or blastic osseous lesion. Moderate air and stool throughout the bowel. Sacrum/Coccyx: No acute fracture or dislocation. Minimal degenerative arthritis of the right and left sacroiliac joint. No concerning lytic or blastic osseous lesion. Pelvic phleboliths. XR/XR sacrum coccyx min 2V IMPRESSION: LUMBAR SPINE: No acute fracture. Chronic grade 1 anterolisthesis of L3 and L4. Minimal multilevel degenerative disc disease. SACRUM/COCCYX: No acute osseous abnormality. Minimal osteoarthritis of the right and left sacroiliac joint.
--- NOTE | ~2022-05-31 | XR_ITS ---
EXAMINATION: XR ANKLE, RIGHT XR FOOT, RIGHT CLINICAL INFORMATION: Pain following a fall. COMPARISON: None. TECHNIQUE: AP, oblique, and lateral views of the right ankle and foot. FINDINGS: No acute fracture or dislocation. The ankle mortise is maintained. No lytic or blastic osseous lesion. No abnormal soft tissue calcification. No significant joint effusion. XR/XR ankle RT 2V IMPRESSION: No acute osseous abnormality.
--- NOTE | ~2022-05-31 | XR_ITS ---
EXAMINATION: XR LUMBAR LUMBAR SPINE XR SACRUM/COCCYX CLINICAL INFORMATION: Pain following a fall. COMPARISON: None. TECHNIQUE: AP, lateral, and coned-down views of the lumbar spine. AP and lateral views of the sacrum and coccyx. FINDINGS: Lumbar Spine: The lumbar lordosis is maintained. Minimal grade 1 anterolisthesis of L3 and L4. No acute fracture. No loss of vertebral body height. No significant loss of intervertebral disc height. Tiny multilevel anterior endplate osteophytes. No lytic or blastic osseous lesion. Moderate air and stool throughout the bowel. Sacrum/Coccyx: No acute fracture or dislocation. Minimal degenerative arthritis of the right and left sacroiliac joint. No concerning lytic or blastic osseous lesion. Pelvic phleboliths. XR/XR lumbar spine 2-3V IMPRESSION: LUMBAR SPINE: No acute fracture. Chronic grade 1 anterolisthesis of L3 and L4. Minimal multilevel degenerative disc disease. SACRUM/COCCYX: No acute osseous abnormality. Minimal osteoarthritis of the right and left sacroiliac joint.
[2022-05-31 10:19] VITALS: BP 140/81; PULSE 110; RESP 16; TEMP 36.4; O2SAT 98; BMI 22.9
--- NOTE | 2022-05-31 10:21 | PC.NURSE ---
PT REPORTS THAT SHE HAS HX OF ANXIETY. HR 110 PT STATING THAT SHE'S OUT OF HER MEDICATION FOR ANXIETY.
[2022-05-31] MEDS: Ketorolac Tromethamine 30 MG/ML VIAL IM (11:20)
[2022-05-31] MEDS: Cyclobenzaprine HCl 5 MG TABLET PO (11:20)
--- NOTE | 2022-05-31 13:08 | ED.BACK ---
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 States ankle gave out, landed on buttock, denies symptoms prior to fall including CP/SOB, lightheadedness/dizziness. Has been ambulatory since incident, denies head trauma or LOC. Denies taking anticoagulation. Denies numbness, tingling, weakness, urinary incontinence/retention MD elicited complaint: back pain, back injury and fall Onset (ago): day(s) Timing: constant Related Data Previous Rx's Medication Instructions Recorded ondansetron 8 mg disintegrating 8 mg PO Q8H #50 tabs 11/15/21 tablet sennosides 8.6 mg tablet (Senokot) 8.6 mg PO BID #60 tabs 12/28/21 oxycodone 5 mg tablet 5 mg PO Q4H PRN Breakthrough Pain, 02/07/22 Moderate #42 tabs oxycodone 5 mg tablet 5 mg PO Q8H PRN Breakthrough Pain, 03/01/22 Moderate #40 tabs gabapentin 300 mg capsule 300 mg PO BEDTIME #60 caps 04/10/22 (Neurontin) lorazepam 0.5 mg tablet (Ativan) 0.5 mg PO BEDTIME PRN Anxiety #30 04/10/22 tabs cholecalciferol (vitamin D3) 25 25 mcg PO DAILY #90 tabs 05/02/22 mcg (1,000 unit) tablet ezetimibe 10 mg tablet (Zetia) 10 mg PO DAILY #30 tabs 05/03/22 acetaminophen 500 mg tablet 500 mg PO Q6H PRN fever or pain 05/31/22 (Tylenol Extra Strength) #14 tabs cyclobenzaprine 5 mg tablet 5 mg PO Q8H PRN pain (scale score 05/31/22 7-10) 5 days #14 tabs lidocaine 5 % topical patch 1 patch topical DAILY PRN pain #30 08/18/22 (Lidoderm) ea naproxen 500 mg tablet 500 mg PO BID PRN pain 10 days #20 05/31/22 tabs Allergies Allergy/AdvReac Type Severity Reaction Status Date / Time No Known Allergies Allergy Verified 04/18/22 14:16 Review of Systems Review of Systems: Constitutional: No Fever, No Chills, No Fatigue, No Malaise ENT/Mouth: No Ear Pain, No Nasal Congestion, No Sinus Pain, No Hoarseness, No sore throat, No Rhinorrhea, No Swallowing Difficulty Eyes: No Eye Pain, No Swelling, No Redness, No Vision Changes Cardiovascular: No Chest Pain, No SOB, No Palpitations Respiratory: No Cough, No Sputum, No Dyspnea Gastrointestinal: No Nausea, No Vomiting, No Diarrhea, No Constipation, No Abdominal pain Genitourinary: No Dysuria, No Urinary Frequency, No Hematuria, No Urinary Incontinence/retention, No Flank Pain Musculoskeletal: + joint pain, No Myalgias, No Joint Swelling Skin: No Skin Lesions, No rash Neuro: No Weakness, No Numbness, No Paresthesias, No Loss of Consciousness, No Dizziness, No Headache Yes all other systems are reviewed and are negative Constitutional: Constitutional: Reports as per [facility] Past Medical History Attestation statement: The following information was validated with the patient. Medical History Alcohol abuse Encounter to establish care Female bladder prolapse No known health problems Surgical History History of bone marrow biopsy History of History of prolapse of bladder Family History Family History Mother Breast cancer Sister Uterine cancer Paternal Grandmother Cancer Father Diabetes Father HTN (hypertension) Social History Social History Household Members: Children Housing: Apartment Are you a primary animal care supervisor to a significant other at home: No Do you presently have visiting nurse or other home services: No Alcohol intake: current Alcohol intake frequency: 3 or more drinks per day Alcohol type: beer Patient Tobacco Use Status: Current everyday Tobacco user Tobacco use type: Cigarette Cigarette Packs Per Day: 1 Cigarettes Per Day: 20 e-Cigarette/Vaping Use: Never Used Second Hand Smoke Exposure: Yes Advance Directives: No Advance Directives Information Provided: No service: No Current occupational status: employed 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 Cognitive needs: No Hearing needs: No Vision needs: No Physical Exam Vital Signs: Vital Signs: Last Vital Signs Temp 97.5 F 05/31/22 10:19 Pulse 110 H 05/31/22 10:19 Resp 16 05/31/22 10:19 BP 140/81 H 05/31/22 10:19 Pulse Ox 98 05/31/22 10:19 O2 Del Method 05/31/22 10:19 BMI result Body Mass Index 22.9 Const: General: cooperative, healthy appearing and no acute distress Orientation/consciousness: patient oriented x3 Limitations: no limitations HEENT: Head: Yes normal to inspection, Yes atraumatic and No Arguello's sign Ears: hearing grossly normal bilaterally General nose exam: Normal external nose present Face and sinus: Yes normal facial exam Eyes: General: appearance normal, both eyes and all related structures EOM: EOMs intact bilaterally Neck: Other: No midline cervical spinous tenderness Neck: Yes normal visual inspection and Yes no meningeal signs Resp: Effort & Inspection: normal respiratory effort and no respiratory distress Cardio: Rate: regular rate Heart sounds: S1 normal heart sound present and S2 normal heart sound present GI: Inspection: Yes normal to inspection Palpation (GI): Soft to palpation and nontender : General: Yes no CVA tenderness Back/Spine/Pelvis: Other: No midline thoracic/lumbar spinous tenderness/step-off or deformity. +left sided lower lumbar MSK ttp and left lower buttock/coccygeal tenderness/palpable muscle spasming Back: no CVA tenderness Skin: Rashes: no rashes Wounds: no wounds Neuro: Other: Strength intact throughout. No saddle anesthesia. Sensation intact to light touch. Neurovascular intact distally General: patient oriented x3, gait normal, tone normal, no meningeal signs and no focal motor deficits Gait exam (Neuro): Normal gait present Extrem: Other: right ankle with mild lateral malleolar swelling, Right proximal foot with swelling and ecchymosis to lateral aspect. +ttp, mild decreased ROM of ankle 2/2 pain. NV intact Course Course Course Narrative: XR ankle RT 2V IMPRESSION: No acute osseous abnormality.? XR foot RT min 3V IMPRESSION: No acute osseous abnormality.? XR lumbar spine 2-3V/XR sacrum coccyx min 2V IMPRESSION: ? LUMBAR SPINE: No acute fracture. Chronic grade 1 anterolisthesis of L3 and L4. Minimal multilevel degenerative disc disease. ? SACRUM/COCCYX: No acute osseous abnormality. Minimal osteoarthritis of the right and left sacroiliac joint.? > patient put an air cast for ankle support. Offered crutches however denied Results discussed with patient including worrisome signs and symptoms and strict return precautions, and when to return to the emergency department. They verbalized understanding and feel safe for discharge at this time. 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 On exam vital signs stable, NAD, no midline spinous tenderness throughout or red flag symptoms. Left-sided lower or MSK back pain elicited and right ankle/foot pain/swelling. Concern for MSK pain/strain vs muscle spasming vs ankle/foot fracture versus sprain Plan: X-rays Differential Diagnosis Differential diagnosis: Likely lumbar radiculopathy and strain of lumbar region Medical Records Attestation: I reviewed the patient's medical records. Lab Data Attestation: I reviewed the patient's lab results. Discharge Plan Discharge Clinical Impression: Ankle sprain, Back pain, Fall Patient Disposition: Home, Self-Care Instructions: Ankle Sprain (ED), Back Pain (ED) Additional Instructions: Your x-ray shows some degenerative/arthritic changes, no fractures. Wear Aircast at home as needed for comfort and stability. Ice and elevate her ankle. Your back pain is likely musculoskeletal Flexeril is a muscle relaxer, take at night as it makes you drowsy, do not drive, drink alcohol, or operate machinery while taking it Naproxen as an anti-inflammatory / pain medication, take with food Lidoderm patches are numbing patches, apply to painful area In addition take Tylenol at home If symptoms persist or worsen, pain becomes unbearable, you developed urinary retention or incontinence, or weakness return to the ED Prescriptions: New acetaminophen [Tylenol Extra Strength] 500 mg tablet 500 mg PO Q6H PRN (Reason: fever or pain) Qty: 14 0RF lidocaine [Lidoderm] 5 % adhesive patch,medicated 1 patch topical DAILY MDD remove after 12 hours PRN (Reason: pain) Qty: 30 0RF Rx Instructions: leave on most painful area for up to 12 hrs naproxen 500 mg tablet 500 mg PO BID PRN (Reason: pain) 10 Days Qty: 20 0RF cyclobenzaprine 5 mg tablet 5 mg PO Q8H PRN (Reason: pain (scale score 7-10)) 5 Days Qty: 14 0RF No Action cholecalciferol (vitamin D3) 25 mcg (1,000 unit) tablet 25 mcg PO DAILY Qty: 90 0RF ezetimibe [Zetia] 10 mg tablet 10 mg PO DAILY Qty: 30 2RF ondansetron 8 mg Tablet,Disintegrating 8 mg PO Q8H Qty: 50 5RF sennosides [Senokot] 8.6 mg Tablet 8.6 mg PO BID Qty: 60 5RF oxycodone 5 mg Tablet 5 mg PO Q4H PRN (Reason: Breakthrough Pain, Moderate) Qty: 42 0RF oxycodone 5 mg Tablet 5 mg PO Q8H PRN (Reason: Breakthrough Pain, Moderate) Qty: 40 0RF gabapentin [Neurontin] 300 mg Capsule 300 mg PO BEDTIME Qty: 60 3RF lorazepam [Ativan] 0.5 mg Tablet 0.5 mg PO BEDTIME PRN (Reason: Anxiety) Qty: 30 0RF Referrals: Ginger Connolly MD [Primary Care Provider] - Interventions: ED Discharge Assessment Last Done: 05/31/22 13:31 Discharge Date/Time: 05/31/22 13:32
== END 2022-05-31 13:32 | disposition home or self-care (01) ==
PROVIDERS: Emergency Provider Emergency Medicine Emergency Medical Services; PCP Internal Medicine
DX: S93.401A Sprain of unspecified ligament of right ankle, initial encounter (principal); W10.8XXA Fall (on) (from) other stairs and steps, initial encounter; M54.50 Low back pain, unspecified; Y93.89 Activity, other specified; Y92.018 Other place in single-family (private) house as the place of occurrence of the external cause; Y99.9 Unspecified external cause status
CPT/HCPCS: 72100; 72220; 73600; 73630; 96372; 99284; J1885

== ENCOUNTER 2022-08-30 12:27 | Outpatient (REF) | payer OTHER, SELFPAY ==
--- NOTE | ~2022-08-30 | CT_ITS ---
EXAMINATION: CT ABDOMEN AND PELVIS WITH CONTRAST CLINICAL INFORMATION: Small cell lung cancer COMPARISON: Previous CT of the abdomen and pelvis most recent May 2022 TECHNIQUE: Multidetector volumetric images were obtained from the superior aspect of the liver through the pubic symphysis following administration 85 mL of Omnipaque 350 intravenous contrast. Sagittal and coronal reformatted images were obtained on the technologist's workstation. Oral contrast: Yes This CT examination was performed using dose optimization techniques as appropriate, variously including the following: *Automated exposure control *Adjustment of mA and/or kV according to patient size (this includes techniques or standardized protocols for targeted exams where dose is matched to indication/reason for exam; i.e. extremities or head) *Use of iterative reconstruction technique DLP: 402 mGy-cm FINDINGS: LUNG BASES: The visualized lung bases are unremarkable. LIVER, GALLBLADDER, AND BILIARY TREE: The liver is low in attenuation suggestive of fatty infiltration. There are innumerable liver lesions There is interval decrease in size in some of the larger liver lesions for example lesion at the junction of the medial segment of the left lobe and anterior segment of the right lobe measures 1.5 cm axial image 21 series 3 compared to 2.3 cm central lesion in the right lobe measures 2.9 x 1.6 cm axial image 22 series 3 compared to 3.2 x 2.2 cm. Some liver lesions appear partially calcified. No new liver lesion. Normal gallbladder. No biliary duct dilatation. PANCREAS: Unremarkable. SPLEEN: Unremarkable. ADRENAL GLANDS: Unremarkable. KIDNEYS AND URETERS: Stable small low-attenuation right renal lesions. These are too small to definitively characterize but may represent small cysts. Kidneys are otherwise normal. No imaging follow-up recommended. BLADDER: Unremarkable. GASTROINTESTINAL TRACT: The small and large bowel are unremarkable. The appendix is unremarkable. ABDOMINAL WALL: No significant hernia is appreciated. LYMPH NODES: Normal. VASCULAR: Atherosclerotic disease. No aneurysm. PELVIC VISCERA: Large complex cystic right adnexal lesion. This demonstrates areas of wall thickening and mural nodularity and appears multiloculated. This appears decreased in size for example measuring 15.8 cm May 2022 in longitudinal dimension compared to 12.7 cm on the current exam Smaller complex cystic lesion in the left adnexa appears unchanged. The uterus is unremarkable. No ascites. No evidence of peritoneal disease. OSSEOUS STRUCTURES: Stable small sclerotic areas in the right inferior pubic ramus and S1 vertebral body. T11 vertebral body. Stable increased sclerosis abnormal the left side of the pubic symphysis. CT/CT abdomen pelvis w IV con IMPRESSION: Fatty liver. Interval decrease in size in some of the larger liver lesions. No new liver lesion seen. Complex multiloculated bilateral adnexal lesions, right greater than left. Right adnexal lesion may be slightly decreased in size. Fleischner guidelines were followed.
--- NOTE | ~2022-08-30 | CT_ITS ---
EXAMINATION: CT CHEST WITH CONTRAST CLINICAL INFORMATION: Small cell lung cancer COMPARISON: Previous chest CT most recent May 2022 TECHNIQUE: Multidetector volumetric CT imaging of the chest was obtained after the administration of 85 mL of Omnipaque 350 intravenous contrast without immediate adverse reactions. Axial MIP volume rendering provided. Sagittal and coronal reformatted images were obtained. This CT examination was performed using dose optimization techniques as appropriate, variously including the following: *Automated exposure control *Adjustment of mA and/or kV according to patient size (this includes techniques or standardized protocols for targeted exams where dose is matched to indication/reason for exam; i.e. extremities or head) *Use of iterative reconstruction technique DLP: 92 mGy-cm FINDINGS: LUNGS: There is minimal residual linear scarring or chronic subsegmental atelectasis in the left upper lobe in the area of previous nodule/mass. There is evidence of mild paraseptal emphysema. Small right upper lobe nodule axial image 202 series 7 is stable. Previously identified small left upper and left lower lobe nodule is not appreciated. No new pulmonary nodule. MEDIASTINUM: Right jugular port with tip projecting over the SVC. The mediastinum is otherwise normal. PLEURA: There is no pleural effusion. No pleural mass or thickening. AXILLA: No lymphadenopathy. No chest wall mass. UPPER ABDOMEN: Unremarkable OSSEOUS STRUCTURES: Question new pathologic fracture of the manubrium and adjacent cysts soft tissue thickening.. Stable small sclerotic area in the T11 vertebral body. Degenerative changes of the lower cervical spine. CT/CT chest w IV con IMPRESSION: Minimal residual linear scarring or chronic subsegmental atelectasis in the left upper lobe in the area of previous nodule/mass. Stable small right upper lobe nodule. Previously identified small left upper and left lower lobe nodules not appreciated. Question new pathologic fracture of the manubrium. Stable small sclerotic area in the T11 vertebral body. Fleischner guidelines were followed.
[2022-08-30] MEDS: Barium Sulfate Oral (Berry) 450 ML ORAL.SUSP 900 ML PO (16:07)
[2022-08-30] MEDS: iohexoL 350 MG/ML 100 ML INFUS..BTL 85 ML IV (16:07)
== END 2022-08-30 12:28 | disposition home or self-care (01) ==
LOC: HO.CT 12:27
PROVIDERS: Visit Provider Internal Medicine Medical Oncology
DX: C34.90 Malignant neoplasm of unspecified part of unspecified bronchus or lung (principal)
CPT/HCPCS: 71260; 74177; Q9967

== ENCOUNTER 2022-09-03 07:35 | Outpatient (REF) | payer OTHER, SELFPAY ==
[2022-09-03 07:48] LABS: MANUAL DIFF FLAG NO
[2022-09-03 08:02] LABS: Basophils Absolute Auto 0.1 X10*3/uL (0.0-0.2); Basophils Percent Auto 0.8 % (0-2); Eosinophils Absolute Auto 0.1 X10*3/uL (0.0-0.4); Hematocrit 31.6 % (37.0-47.0); Hemoglobin 10.5 g/dl (12.0-16.0); Imm Gran Abs Auto 0.22 X10*3/uL (0.00-0.03); Imm Gran Pct Auto 3.5 % (0.0-0.4); Lymphocytes Absolute Auto 1.5 X10*3/uL (1.2-4.9); Lymphocytes Percent Auto 24.1 % (20-40); Mean Corpuscular HGB Conc 33.2 g/dl (31.0-35.0); Mean Corpuscular Hemoglobin 40.4 pg (27.0-33.0); Mean Platelet Volume 10.8 fL (9.4-12.3); Monocytes Percent Auto 16.4 % (2-11); NRBC Pct Auto 0.3 /100WBC (0.0-0.2); Neutrophils Absolute Auto 3.4 x10*3/uL (2.0-8.3); Neutrophils Percent Auto 54.2 % (45-73); Platelet Count 187 X10*3/uL (160-400); Red Cell Distribution Width 16.9 % (11.0-16.0); White Blood Count 6.3 X10*3/uL (4.8-10.8)
[2022-09-03 08:04] LABS: Mean Corpuscular Volume 121.5 fL (80.0-98.0)
[2022-09-03 09:18] LABS: Alanine Aminotransferase 17 U/L (0-31); Albumin Level 4.3 g/dL (3.5-5.0); Alkaline Phosphatase 135 U/L (39-117); Anion Gap 16 (12-20); Aspartate Amino Transferase 22 U/L (5-31); Bilirubin Total 0.3 mg/dL (0.0-1.0); Blood Urea Nitrogen 5 mg/dL (9-16); Calcium 9.7 mg/dL (8.4-10.2); Carbon Dioxide 26 mmol/L (22-29); Chloride 106 mmol/L (96-108); Cholesterol 243 mg/dL; Estimated Glomerular Filt Rate > 60; Glucose Random 92 mg/dL (60-115); HDL Cholesterol 57 mg/dL; LDL Cholesterol Calculated 130 mg/dl; Potassium 4.5 mmol/L (3.3-5.1); Sodium 143 mmol/L (135-145); Total Protein 7.3 g/dL (6.5-8.0); Triglycerides 282 mg/dL
[2022-09-03 09:47] LABS: Vitamin D 25-OH Total 45.9 ng/mL (>30)
[2022-09-03 16:53] LABS: Lactate Dehydrogenase 209 U/L (122-220)
[2022-09-05 11:52] LABS: CA-125 1515 U/mL (<35)
== END 2022-09-03 07:36 | disposition home or self-care (01) ==
LOC: HO.LAB 07:35
PROVIDERS: Absent Provider Internal Medicine Medical Oncology; PCP Internal Medicine; Visit Provider Nurse Practitioner Family
DX: C34.90 Malignant neoplasm of unspecified part of unspecified bronchus or lung (principal); R79.89 Other specified abnormal findings of blood chemistry; E78.5 Hyperlipidemia, unspecified
CPT/HCPCS: 36415; 80053; 80061; 82306; 82378; 83615; 85025; 86304

== ENCOUNTER → 2022-09-14 09:34 | Outpatient (REF) | payer OTHER, SELFPAY ==
--- NOTE | ~2022-09-14 | NM_ITS ---
EXAMINATION: NM BONE SCAN OF THE WHOLE BODY CLINICAL INFORMATION: Malignant neoplasm of unspecified ovary. Small cell lung cancer. History of sclerotic lesion involving T11 vertebral body and 5 mm lytic lesion at right iliac bone. COMPARISON: CT of the chest abdomen and pelvis done on 08/30/2022 and whole-body bone scan done on 01/11/2022. TECHNIQUE: Multiple gamma scintillation camera images of the whole body were performed 3.25 hours following the intravenous administration of 23 mCi Tc-99m MDP. The radiotracer was injected right hand superficial vein, without complications. FINDINGS: In the head, interval development of focal increased radiotracer activity is noted within the base of the left mandible, may represent changes secondary to odontogenic disease. In the thoracic cage and upper extremities, new abnormal increased radiotracer activity is noted within the proximal part of the sternum, concordant with healing fracture seen on prior CT study dated 08/30/2022. Interval development of focal increased radiotracer activity is present involving anterior end of the left second rib, when correlating with prior CT study done on 08/30/2022, corresponds to focal area of sclerosis, consistent with healing fracture. In the spine, no suspicious focal lesion. In the pelvis, no suspicious focal lesion. In the lower extremities, no suspicious focal lesion. No other definite bony abnormalities are noted. The urinary bladder and faint visualization of both kidneys are noted. NM/NM bone scan whole body IMPRESSION: 1. Interval development of focal increased radiotracer activity is present within the left-sided base of the mandible, may represent odontogenic disease. Radiographic correlation is recommended. 2. Interval development of increased radiotracer activities are present within the proximal part of the body of the sternum and the anterior end of the left second rib, when correlating with prior most recent CT of the chest done on 08/30/2022, corresponds to the site of healing fractures, of indeterminate etiology. 3. No other significant change since most recent prior whole-body bone scan done on 01/11/2022.
== END ==
LOC: HO.NUCMED 09:34
PROVIDERS: Visit Provider Internal Medicine Medical Oncology
DX: C56.9 Malignant neoplasm of unspecified ovary (principal); C78.7 Secondary malignant neoplasm of liver and intrahepatic bile duct
CPT/HCPCS: 78306; A9503

== ENCOUNTER 2022-09-21 11:55 | Outpatient (REF) | payer OTHER, SELFPAY ==
--- NOTE | ~2022-09-21 | MR_ITS ---
EXAMINATION: MR BRAIN WITHOUT AND WITH CONTRAST CLINICAL INFORMATION: Memory loss. Small cell lung carcinoma. Evaluate for intracranial metastatic disease. COMPARISON: No relevant prior imaging. TECHNIQUE: Multiplanar MR imaging of the brain was performed without and with contrast. A total of 6.5 mL Gadavist was utilized for this examination. FINDINGS: There are numerous small foci of ill-defined foci of intracranial enhancement, many of which demonstrate intrinsic T1 signal hyperintensity, most likely representing a manifestation of metastatic disease in a patient with a history of small cell lung carcinoma. Many of these lesions are distributed within the basal ganglia and thalami. There are also many superficial implants involving the cerebellar folia and both cerebral hemispheres. There is a relatively prominent enhancing lesion within the pineal gland that measures up to 1 cm in diameter. No associated mass effect on the tectum and no obstructive hydrocephalus. The gradient recalled echo sequence associated numerous foci of magnetic susceptibility artifact representing mineralization or possibly hemosiderin staining from multiple microhemorrhages distributed within the brain and cerebellum. No acute territorial infarct. Intracranial vascular flow voids are grossly maintained. Lateral and third ventricles are normal. No hydrocephalus. Midline structures including the cervicomedullary junction are normal. No acute bone marrow signal changes. There is no mastoid or middle ear effusion. Trivial mucosal thickening within the left maxillary sinus. Otherwise no active paranasal sinus disease. Globes and orbits are grossly symmetric. MR/MR head/brain wo/w con IMPRESSION: There are numerous intracranial enhancing lesions consistent with widespread intracranial metastatic disease in a patient with a history of small cell lung carcinoma. The dominant lesion measuring up to 1 cm in diameter involves the pineal region. No obstructive hydrocephalus. There is hemosiderin staining or mineralization associated with many of the lesions on the gradient recalled echo sequence.
== END 2022-09-21 11:56 | disposition home or self-care (01) ==
LOC: HO.MRI 11:55
PROVIDERS: PCP Internal Medicine; Visit Provider Internal Medicine Medical Oncology
DX: R41.3 Other amnesia (principal)
CPT/HCPCS: 70553; A9585

== ENCOUNTER 2022-10-17 12:55 | Outpatient (REF) | payer OTHER, SELFPAY | END 2022-10-17 12:56 | disposition home or self-care (01) | LOC: HO.XRAY 12:55 | PROVIDERS: Visit Provider Internal Medicine Medical Oncology | DX: Z13.89 Encounter for screening for other disorder (principal) ==

== ENCOUNTER 2022-10-18 12:50 | Outpatient (REF) | payer OTHER, SELFPAY ==
--- NOTE | ~2022-10-18 | XR_ITS ---
EXAMINATION: CR X-RAY MANDIBLE AND FACIAL BONES CLINICAL INFORMATION: Black sore near left ear after receiving radiation. COMPARISON: None TECHNIQUE: 5 views of the facial bones and 4 views of the mandible were obtained. FINDINGS: There is no acute fracture or dislocation. The paranasal sinuses are clear. The nasal bones appear intact. The bony orbits appear intact with the bony calvarium is intact. No overt temporal mandibular abnormality seen. The soft tissues are unremarkable. XR/XR mandible min 4V IMPRESSION: Unremarkable facial bones/mandible. Given the patient's history suggests this is a soft tissue abnormality, if this finding persists or worsens, short-term follow-up with a CT scan and/or targeted ultrasound in this region is recommended.
--- NOTE | ~2022-10-18 | XR_ITS ---
EXAMINATION: CR X-RAY MANDIBLE AND FACIAL BONES CLINICAL INFORMATION: Black sore near left ear after receiving radiation. COMPARISON: None TECHNIQUE: 5 views of the facial bones and 4 views of the mandible were obtained. FINDINGS: There is no acute fracture or dislocation. The paranasal sinuses are clear. The nasal bones appear intact. The bony orbits appear intact with the bony calvarium is intact. No overt temporal mandibular abnormality seen. The soft tissues are unremarkable. XR/XR facial bones min 3V IMPRESSION: Unremarkable facial bones/mandible. Given the patient's history suggests this is a soft tissue abnormality, if this finding persists or worsens, short-term follow-up with a CT scan and/or targeted ultrasound in this region is recommended.
== END 2022-10-18 12:51 | disposition home or self-care (01) ==
LOC: HO.XRAY 12:50
PROVIDERS: Visit Provider Internal Medicine Medical Oncology
DX: C34.90 Malignant neoplasm of unspecified part of unspecified bronchus or lung (principal); R93.89 Abnormal findings on diagnostic imaging of other specified body structures
CPT/HCPCS: 70110; 70150

== ENCOUNTER 2022-12-27 06:57 | Outpatient (REF) | payer OTHER, SELFPAY ==
[2022-12-27 08:03] LABS: Cholesterol 233 mg/dL; Glucose Fasting 105 mg/dL (60-99); HDL Cholesterol 57 mg/dL; LDL Cholesterol Calculated 134 mg/dl; Triglycerides 213 mg/dL
[2022-12-27 09:24] LABS: Folate 11.8 ng/mL (> or = 4.0); TSH reflex Free T4 1.81 uIU/mL (0.32-4.0); Vitamin B12 606 pg/mL (200-900); Vitamin D 25-OH Total 48.1 ng/mL (>30)
== END 2022-12-27 06:58 | disposition home or self-care (01) ==
LOC: HO.LAB 06:57
PROVIDERS: PCP Nurse Practitioner Family; Visit Provider Nurse Practitioner Family
DX: Z00.00 Encounter for general adult medical examination without abnormal findings (principal); E78.5 Hyperlipidemia, unspecified; F41.9 Anxiety disorder, unspecified
CPT/HCPCS: 36415; 80061; 82306; 82607; 82746; 82947; 84443

== ENCOUNTER 2023-01-04 15:09 | Inpatient (IN) | payer OTHER, SELFPAY ==
[2023-01-04] VITALS (9 sets, daily range): BP systolic 106–141; BP diastolic 77–92; PULSE 104–114; RESP 16–26; TEMP 36.8–37.5; O2SAT 78–98; BMI 25.5
--- NOTE | 2023-01-04 | ECG_ITS ---
Test Reason : SYNCOPE Blood Pressure : / mmHG Vent. Rate : 113 BPM Atrial Rate : 113 BPM P-R Int : 136 ms QRS Dur : 078 ms QT Int : 320 ms P-R-T Axes : 048 033 061 degrees QTc Int : 438 ms Sinus tachycardia Otherwise normal ECG No previous ECGs available Referred By: Generic ED Physician Electronically Signed By:MEHRAN DANIELLE MD
--- NOTE | ~2023-01-04 | CT_ITS ---
EXAMINATION: CT HEAD WITHOUT CONTRAST CLINICAL INFORMATION: Syncope. Confusion. Metastatic disease. COMPARISON: Brain MRI from 09/21/2022. TECHNIQUE: Contiguous axial imaging was performed from the skull base to vertex without intravenous administration of contrast. This CT examination was performed using dose optimization techniques as appropriate, variously including the following: *Automated exposure control. *Adjustment of mA and/or kV according to patient size (this includes techniques or standardized protocols for targeted exams where dose is matched to indication/reason for exam; i.e. extremities or head). *Use of iterative reconstruction technique. DLP: 630 mGy-cm FINDINGS: There is no evidence of acute intracranial hemorrhage or edematous territorial infarction. There are multiple scattered regions of expansile white matter hypoattenuation in the high right frontoparietal lobes, anterior bifrontal lobes, right internal capsule, left cerebral peduncle. No overt loss of morales-white matter differentiation. Proportional prominence of the ventricles and sulcal spaces without evidence of obstructive hydrocephalus. No midline shift. No extra-axial fluid collections. No acute soft tissue or osseous abnormalities. Mild mucosal thickening of the paranasal sinuses. The mastoid air cells and middle ear cavities are clear. CT/CT head/brain wo IV con IMPRESSION: 1. No evidence of acute intracranial hemorrhage or edematous territorial infarction. 2. Multiple scattered regions of expansile white matter hypoattenuation throughout the bilateral cerebral hemispheres and deep white matter suspicious for progression of underlying metastatic disease. This critical result was discussed with Belén LEVINE at 17:35 on 01/04/2023 and it was ascertained that the content and urgency of the report was understood at the time of direct communication.
--- NOTE | ~2023-01-04 | CT_ITS ---
EXAMINATION: CT ANGIOGRAM OF THE CHEST WITH AND WITHOUT CONTRAST (CT PULMONARY ANGIOGRAM FOR PE) CLINICAL INFORMATION: Reason for Exam syncope, hx cancer, hypoxic COMPARISON: 08/30/2022 TECHNIQUE: Prior to contrast administration, noncontrast localization images were obtained. Subsequently, multidetector volumetric imaging was performed from the thoracic inlet to below the diaphragms following the administration of 65 mL Omnipaque 350 intravenous contrast. No contrast reaction reported Sagittal, coronal, and MIP oblique sagittal reformatted images were obtained on the CT workstation, uploaded to PACS, and reviewed. This CT examination was performed using dose optimization techniques as appropriate, variously including the following: *Automated exposure control *Adjustment of mA and/or kV according to patient size (this includes techniques or standardized protocols for targeted exams where dose is matched to indication/reason for exam; i.e. extremities or head) *Use of iterative reconstruction technique Total exam dose-length product 305 mGy-cm FINDINGS: QUALITY OF STUDY/CONTRAST BOLUS: Satisfactory. PULMONARY ARTERIES: No central or segmental pulmonary emboli. THORACIC AORTA: No aneurysm or dissection. LUN small left apical nodules are new since recent imaging on 08/30/2022. These measure approximately 7 and 5 mm each. No other focal lesion. PLEURA: No pleural effusion or pneumothorax. MEDIASTINUM: New irregular lesion left anterior mediastinum measuring up to 2.1 cm most consistent with a prevascular pathologic lymph node. No evidence of septal bowing or right heart strain. No coronary artery calcifications are present. CORONARY ARTERY CALCIFICATION: None visualized on this study. CHEST WALL/AXILLA: No axillary or internal mammary lymphadenopathy. OSSEOUS STRUCTURES: Healing left-sided posterior rib fracture. No new fractures. Sclerotic focus lower dorsal vertebral body similar. No fracture. Sclerotic lesion to the sternomanubrial junction with the fracture noted. This is similar to previous. UPPER ABDOMEN: Progression of multiple now larger liver lesions partially imaged. No reflux of contrast into the hepatic veins to suggest elevated right heart pressures. Partial imaging a presumed be new large left adrenal lesion. CT/CT angio chest PE protocol IMPRESSION: 1. No evidence for acute or chronic pulmonary embolism. 2. Progression of metastatic disease as above. VTE: negative.
--- NOTE | ~2023-01-04 | MR_ITS ---
EXAMINATION: MR BRAIN WITHOUT AND WITH CONTRAST CLINICAL INFORMATION: Encephalopathy. COMPARISON: Brain MRI 09/21/2022. TECHNIQUE: Multiplanar, multisequence imaging of the brain was performed before and after the intravenous administration of 7 mL of Gadavist. FINDINGS: There are innumerable enhancing lesions throughout the cerebral and cerebellar hemispheres as well as throughout the basal ganglia, thalami, and brainstem. The overall number and size of lesions has increased compared with 09/21/2022. There is extensive edema surrounding many of the lesions, significantly progressed compared with prior. There is confluent edema involving the basal ganglia, thalami, and brainstem. Despite the edema there is no midline shift or herniation. There is no hydrocephalus. There is no acute infarction. Numerous foci of susceptibility signal are again demonstrated corresponding to the intracranial metastases, stable from prior. The The major arterial flow voids are preserved at the skull base. The extracranial structures are unremarkable. MR/MR head/brain wo/w con IMPRESSION: Innumerable enhancing lesions throughout the cerebral and cerebellar hemispheres as well as throughout the basal ganglia, thalami, and brainstem. The overall number and size of lesions has increased compared with 09/21/2022. Extensive edema is seen throughout the basal ganglia, thalami, and brainstem. No midline shift or herniation.
--- NOTE | 2023-01-04 15:57 | ED_ITS ---
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 Aviles who presents to the ER after she was found on the ground outside of her home earlier today. History obtained from her father at the bedside. He states she was in her usual state of health this morning and was going to leave for work. When her son saw the car still in the driveway at 9am he was confused. A neighbor saw her on the ground and helped bring her inside. The son's grandmother came over to the home. She noticed that the patient was not at her baseline mental status. She was nodding out and not acting herself. She was confused. EMS was called. EMS reports the patient syncopized twice. not witnessed by them or family. She arrives to the ER awake, alert but confused. Slow to respond. Oriented to person and place but not situation. Denies any pain. MD complaint: collapsed Onset (ago): hour(s) Description of event: post-event confusion Witnessed: No Injuries sustained associated with event: LUE (superficial scrape) Current symptoms: other (confused) History: other (brain mets) Treatments prior to arrival: none Related Data Previous Rx's Medication Instructions Recorded acetaminophen 500 mg tablet 500 mg PO Q6H PRN fever or pain 05/31/22 (Tylenol Extra Strength) #14 tabs lidocaine 5 % topical patch 1 patch topical DAILY PRN pain #30 05/31/22 (Lidoderm) ea triamcinolone acetonide 0.1 % 1 appl topical BEDTIME 14 days #15 08/24/22 topical cream grams hydroxyzine HCl 25 mg tablet 25 mg PO BID PRN anxiety #20 tabs 09/20/22 ezetimibe 10 mg tablet (Zetia) 10 mg PO DAILY #30 tabs 09/22/22 lidocaine HCl 2 % mucosal solution 1 appl mucous membrane BID #300 mL 11/05/22 (Lidocaine Viscous) ondansetron HCl 8 mg tablet 8 mg PO Q8H #50 tabs 11/05/22 cholecalciferol (vitamin D3) 25 25 mcg PO DAILY #90 tabs 12/07/22 mcg (1,000 unit) tablet cyclobenzaprine 5 mg tablet 5 mg PO TID #60 tabs 12/17/22 lorazepam 0.5 mg tablet 0.5 mg PO TID PRN Anxiety #50 tabs 12/17/22 oxycodone 5 mg tablet 5 mg PO Q8H PRN Breakthrough Pain, 12/17/22 Moderate #60 tabs Allergies Allergy/AdvReac Type Severity Reaction Status Date / Time No Known Allergies Allergy Verified 12/26/22 15:36 Review of Systems Review of Systems: Yes all other systems are reviewed and are negative [facility] Past Medical History Medical History Alcohol abuse Encounter to establish care Female bladder prolapse No known health problems Surgical History History of bone marrow biopsy History of History of prolapse of bladder Family History Family History Mother Breast cancer Sister Uterine cancer Paternal Grandmother Cancer Father Diabetes Father HTN (hypertension) Social History Social History Household Members: Children Housing: Apartment Are you a primary rn urgent care to a significant other at home: No Do you presently have visiting nurse or other home services: No Alcohol intake: current Alcohol intake frequency: 3 or more drinks per day Alcohol type: beer Patient Tobacco Use Status: Current everyday Tobacco user Tobacco use type: Cigarette Cigarette Packs Per Day: 1 Cigarettes Per Day: 20 e-Cigarette/Vaping Use: Never Used Second Hand Smoke Exposure: Yes Advance Directives: No Advance Directives Information Provided: No service: No Current occupational status: employed 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 Conjuncitval pallor ENT: Pharynx normal. Neck: Normal inspection. Neck supple. CVS: Tachycardic, heart rate 110, regular rhythm, Pulses normal. Right chest wall with port in place surrounding erythema or tenderness Respiratory: No respiratory distress. Breath sounds normal. Abdomen: Softly distended and nontender. +BS x4 Skin: Skin warm and dry. Normal skin color. Normal skin turgor. No rashes. Extremities: No lower extremity edema. No calf swelling or tenderness, no erythema. Superficial abrasion on the left elbow, normal range of motion. Neuro: Oriented X 2. Moves all extremities and follows simple commands, slow to respond, generally weak, nonfocal, confused Course Reevaluation(s) Reevaluation #1: Patient was found to be hypoxic to 77% with a good waveform. She was placed on [address] angio of the chest ordered to rule out pulmonary embolism that could be a cause of her syncopal episode given her extensive oncologic history Time: 16:50 Medications Administered Discontinued Medications Generic Name Dose Route Start Last Admin Trade Name Freq PRN Reason Stop Dose Admin Iohexol 100 ml 01/04/23 17:17 01/04/23 17:18 Iohexol 350 Mg/Ml 100 Ml Infus..Btl IV 01/04/23 17:18 65 ml ONCE ONE Administration Medical Decision Making Medical Decision Making MDM Narrative: 47-year-old female with a history of small-cell lung carcinoma with brain metastases, status post whole-brain radiation last month on current chemotherapy and steroids who presents to the ER for evaluation of acute mental status change. Patient was found down on the ground outside of her home prior to going to work today. She has been poorly responsive and not at her baseline since. She is awake and alert, slow to answer and confused. CT head does not show any acute bleed or stroke, likely worsening mets but will need MRI to confirm. No obvious signs of an infection. No headache or neck pain, no role for emergent LP at this time. She is requiring oxygen. She is not at her baseline. She will require admission for further management and workup of acute encephalopathy. Differential Diagnosis Differential Diagnoses: The differential diagnosis associated with the presentation includes syncope, anemia, PEs, dehydration, electrolyte abnormalities, acute metabolic encephalopathy, CVA, metastatic brain lesion w/ hemorrhage, ETOH intoxication, drug use, progressing cancer Admission/Observation Consideration of admission/observation: Escalation of care including admission/observation considered Consult Healthcare Provider Management of the patient was discussed with: Hospitalist Lab Data MDM Lab Attestation statement: I reviewed the patient's lab results. Stable anemia, no thrombocytopenia, neutropenia, normal renal function. 01/04/23 16:00 01/04/23 15:57 Labs: Lab Results 01/04/23 01/04/23 01/04/23 Range/Units 15:57 15:57 16:00 WBC 8.8 (4.8-10.8) X10*3/uL RBC 2.28 L (4.20-5.50) X10*6/uL Hgb 8.4 L (12.0-16.0) g/dl Hct 25.6 L (37.0-47.0) % MCV 112.3 H (80.0-98.0) fL MCH 36.8 H (27.0-33.0) pg MCHC 32.8 (31.0-35.0) g/dl RDW 23.8 H (11.0-16.0) % Plt Count 305 (160-400) X10*3/uL MPV 10.5 (9.4-12.3) fL Immature Gran % (Auto) 4.5 H (0.0-0.4) % Neut % (Auto) 78.0 H (45-73) % Lymph % (Auto) 6.9 L (20-40) % [place] % (Auto) 10.1 (2-11) % Eos % (Auto) 0.2 (0-4) % Baso % (Auto) 0.3 (0-2) % Lymph # (Auto) 0.6 L (1.2-4.9) X10*3/uL [place] # (Auto) 0.9 (0.1-1.2) X10*3/uL Eos # (Auto) 0.0 (0.0-0.4) X10*3/uL Baso # (Auto) 0.0 (0.0-0.2) X10*3/uL Abs Immat Gran (auto) 0.39 H (0.00-0.03) X10*3/uL Absolute Neuts (auto) 6.8 (2.0-8.3) x10*3/uL Absolute Nucleated RBC 0.140 H (0.0-0.012) X10*3/uL Nucleated RBC % (auto) 1.6 H (0.0-0.2) /100WBC VBG pH (7.32-7.43) VBG pCO2 mmHg VBG pO2 mmHg VBG HCO3 (22-26) mmol/L VBG O2 Saturation VBG Base Excess mmol/L Sodium 135 (135-145) mmol/L Potassium 3.6 (3.3-5.1) mmol/L Chloride 97 (96-108) mmol/L Carbon Dioxide 24 (22-29) mmol/L Anion Gap 18 (12-20) BUN 12 (9-16) mg/dL Creatinine 0.67 (0.5-1.4) mg/dL Estim Creat Clear Calc 99.5 Estimated GFR > 60 Random Glucose 99 (60-115) mg/dL Calcium 10.2 D (8.4-10.2) mg/dL Total Bilirubin 0.7 (0.0-1.0) mg/dL AST 42 H (5-31) U/L ALT 21 (0-31) U/L Alkaline Phosphatase 195 H (39-117) U/L Ammonia (13-55) umol/L Total Creatine Kinase (26-140) U/L Troponin I High Sens < 3.5 (<3.5-17.0) ng/L Total Protein 6.9 (6.5-8.0) g/dL Albumin 4.3 (3.5-5.0) g/dL TSH (0.32-4.0) uIU/mL Ethyl Alcohol < 10 mg/dL Blood Type Antibody Screen 01/04/23 01/04/23 01/04/23 Range/Units 16:47 16:47 16:47 WBC (4.8-10.8) X10*3/uL RBC (4.20-5.50) X10*6/uL Hgb (12.0-16.0) g/dl Hct (37.0-47.0) % MCV (80.0-98.0) fL MCH (27.0-33.0) pg MCHC (31.0-35.0) g/dl RDW (11.0-16.0) % Plt Count (160-400) X10*3/uL MPV (9.4-12.3) fL Immature Gran % (Auto) (0.0-0.4) % Neut % (Auto) (45-73) % Lymph % (Auto) (20-40) % [place] % (Auto) (2-11) % Eos % (Auto) (0-4) % Baso % (Auto) (0-2) % Lymph # (Auto) (1.2-4.9) X10*3/uL [place] # (Auto) (0.1-1.2) X10*3/uL Eos # (Auto) (0.0-0.4) X10*3/uL Baso # (Auto) (0.0-0.2) X10*3/uL Abs Immat Gran (auto) (0.00-0.03) X10*3/uL Absolute Neuts (auto) (2.0-8.3) x10*3/uL Absolute Nucleated RBC (0.0-0.012) X10*3/uL Nucleated RBC % (auto) (0.0-0.2) /100WBC VBG pH (7.32-7.43) VBG pCO2 mmHg VBG pO2 mmHg VBG HCO3 (22-26) mmol/L VBG O2 Saturation VBG Base Excess mmol/L Sodium (135-145) mmol/L Potassium (3.3-5.1) mmol/L Chloride (96-108) mmol/L Carbon Dioxide (22-29) mmol/L Anion Gap (12-20) BUN (9-16) mg/dL Creatinine (0.5-1.4) mg/dL Estim Creat Clear Calc Estimated GFR Random Glucose (60-115) mg/dL Calcium (8.4-10.2) mg/dL Total Bilirubin (0.0-1.0) mg/dL AST (5-31) U/L ALT (0-31) U/L Alkaline Phosphatase (39-117) U/L Ammonia 39 (13-55) umol/L Total Creatine Kinase 69 (26-140) U/L Troponin I High Sens (<3.5-17.0) ng/L Total Protein (6.5-8.0) g/dL Albumin (3.5-5.0) g/dL TSH 1.89 (0.32-4.0) uIU/mL Ethyl Alcohol mg/dL Blood Type O Positive Antibody Screen NEGATIVE 01/04/23 Range/Units 16:56 WBC (4.8-10.8) X10*3/uL RBC (4.20-5.50) X10*6/uL Hgb (12.0-16.0) g/dl Hct (37.0-47.0) % MCV (80.0-98.0) fL MCH (27.0-33.0) pg MCHC (31.0-35.0) g/dl RDW (11.0-16.0) % Plt Count (160-400) X10*3/uL MPV (9.4-12.3) fL Immature Gran % (Auto) (0.0-0.4) % Neut % (Auto) (45-73) % Lymph % (Auto) (20-40) % [place] % (Auto) (2-11) % Eos % (Auto) (0-4) % Baso % (Auto) (0-2) % Lymph # (Auto) (1.2-4.9) X10*3/uL [place] # (Auto) (0.1-1.2) X10*3/uL Eos # (Auto) (0.0-0.4) X10*3/uL Baso # (Auto) (0.0-0.2) X10*3/uL Abs Immat Gran (auto) (0.00-0.03) X10*3/uL Absolute Neuts (auto) (2.0-8.3) x10*3/uL Absolute Nucleated RBC (0.0-0.012) X10*3/uL Nucleated RBC % (auto) (0.0-0.2) /100WBC VBG pH 7.47 H (7.32-7.43) VBG pCO2 36 mmHg VBG pO2 75 mmHg VBG HCO3 26 (22-26) mmol/L VBG O2 Saturation TNP VBG Base Excess 3.4 mmol/L Sodium (135-145) mmol/L Potassium (3.3-5.1) mmol/L Chloride (96-108) mmol/L Carbon Dioxide (22-29) mmol/L Anion Gap (12-20) BUN (9-16) mg/dL Creatinine (0.5-1.4) mg/dL Estim Creat Clear Calc Estimated GFR Random Glucose (60-115) mg/dL Calcium (8.4-10.2) mg/dL Total Bilirubin (0.0-1.0) mg/dL AST (5-31) U/L ALT (0-31) U/L Alkaline Phosphatase (39-117) U/L Ammonia (13-55) umol/L Total Creatine Kinase (26-140) U/L Troponin I High Sens (<3.5-17.0) ng/L Total Protein (6.5-8.0) g/dL Albumin (3.5-5.0) g/dL TSH (0.32-4.0) uIU/mL Ethyl Alcohol mg/dL Blood Type Antibody Screen Independent Interpretation I performed an independent interpretation of an: EKG and CT Scan Interpretation: EKG sinus tachycardia, ventricular rate 113 beats per minute, normal MD interval, normal QTC, no ST segment elevations or depressions. CTA of the chest without any central or segmental PEs. No focal pneumonia CT of the head without any acute bleed Radiology Impression Discussion of test interpretation with radiology: I discussed test interpretation with the radiologist and I have reviewed the radiologist's reading. Radiologist Impression: Spoke with radiologist regarding a CT head, she has some changes consistent with progressing metastatic lesions. He also discussed CTA of the chest, no large vessel PE but there is a new mediastinal lesion, decreased caliber of the vasculature in the left upper lobe, unclear significance CT/CT head/brain wo IV con IMPRESSION: 1.? No evidence of acute intracranial hemorrhage or edematous territorial infarction. 2.? Multiple scattered regions of expansile white matter hypoattenuation throughout the bilateral cerebral hemispheres and deep white matter suspicious for progression of underlying metastatic disease. Independent Historian Clinical information obtained from an independent historian. History obtained from or confirmed by: Parent and EMS External Record Review External record reviewed: Office record, Outpatient record and Prior outpatient labs Chronic Conditions Patient?s care impacted by: Other (metastatic cancer, alcoholism) Critical Care Time Critical Care Time Critical Care Time: Yes Total Critical Care Time: 46 Attestation: I have personally provided critical care time exclusive of time spent on separately billable procedures. Time includes review of lab data, radiology results, discussion with consultants, and monitoring for potential de compensation. Intervention performed as documented. Discharge Plan Discharge Clinical Impression: Acute encephalopathy, Hypoxia Patient Disposition: Admitted As Inpatient
[2023-01-04 16:03] LABS: MANUAL DIFF FLAG NO
[2023-01-04 16:07] LABS: Basophils Percent Auto 0.3 % (0-2); Eosinophils Percent Auto 0.2 % (0-4); Hematocrit 25.6 % (37.0-47.0); Hemoglobin 8.4 g/dl (12.0-16.0); Imm Gran Abs Auto 0.39 X10*3/uL (0.00-0.03); Imm Gran Pct Auto 4.5 % (0.0-0.4); Lymphocytes Absolute Auto 0.6 X10*3/uL (1.2-4.9); Lymphocytes Percent Auto 6.9 % (20-40); Mean Corpuscular HGB Conc 32.8 g/dl (31.0-35.0); Mean Corpuscular Hemoglobin 36.8 pg (27.0-33.0); Mean Platelet Volume 10.5 fL (9.4-12.3); Monocytes Absolute Auto 0.9 X10*3/uL (0.1-1.2); Monocytes Percent Auto 10.1 % (2-11); Neutrophils Absolute Auto 6.8 x10*3/uL (2.0-8.3); Platelet Count 305 X10*3/uL (160-400); Red Blood Count 2.28 X10*6/uL (4.20-5.50); Red Cell Distribution Width 23.8 % (11.0-16.0); White Blood Count 8.8 X10*3/uL (4.8-10.8)
--- NOTE | 2023-01-04 16:11 | PC.NURSE ---
Patient to CT OIV access obtained patient has portacath right anterior chest used for chemo next on Saturday father at bedside states this is not her norm will CTM
[2023-01-04 16:27] LABS: Mean Corpuscular Volume 112.3 fL (80.0-98.0); NRBC Pct Auto 1.6 /100WBC (0.0-0.2)
[2023-01-04 16:41] LABS: Alanine Aminotransferase 21 U/L (0-31); Albumin Level 4.3 g/dL (3.5-5.0); Alkaline Phosphatase 195 U/L (39-117); Anion Gap 18 (12-20); Aspartate Amino Transferase 42 U/L (5-31); Bilirubin Total 0.7 mg/dL (0.0-1.0); Blood Urea Nitrogen 12 mg/dL (9-16); Calcium 10.2 mg/dL (8.4-10.2); Carbon Dioxide 24 mmol/L (22-29); Chloride 97 mmol/L (96-108); Creatinine Clr Calc Pharmacy 99.5; Estimated Glomerular Filt Rate > 60; Ethanol < 10 mg/dL; Glucose Random 99 mg/dL (60-115); Potassium 3.6 mmol/L (3.3-5.1); Sodium 135 mmol/L (135-145); Total Protein 6.9 g/dL (6.5-8.0); Troponin-I High Sensitivity < 3.5 ng/L (<3.5-17.0)
--- NOTE | 2023-01-04 16:52 | PC.NURSE ---
Patient desat to upper 70's on RA placed patient on 3 L of O2 with good effect provider aware awaiting orders, confusion continues will CTM
[2023-01-04 17:04] LABS: Venous Blood Gas Refer to POC result
[2023-01-04 17:05] LABS: VBG Base Excess 3.4 mmol/L; VBG HCO3 26 mmol/L (22-26); VBG pCO2 36 mmHg; VBG pH 7.47 (7.32-7.43); VBG pO2 75 mmHg
[2023-01-04] MEDS: iohexoL 350 MG/ML 100 ML INFUS..BTL IV (17:18)
[2023-01-04 17:38] LABS: TSH reflex Free T4 1.89 uIU/mL (0.32-4.0)
[2023-01-04 17:50] LABS: Ammonia 39 umol/L (13-55)
[2023-01-04] MEDS: 0.9 % Sodium Chloride 1,000 ML 999 ML IVCONT (18:10)
--- NOTE | 2023-01-04 18:27 | PC.NURSE ---
New IV place Upper right arm old iv kinked patient tolerating IVF needs constant redirection to leave O2 by nasal cannula on will CTM
--- NOTE | 2023-01-04 18:27 | PHA.MEDREC ---
med rec complete, no issues Pharmacy Consult ? Medication Reconciliation Pharmacy has completed the medication reconciliation.
[2023-01-04 18:29] LABS: COVID-19 Test Negative (Negative); IDNOW Serial# BCCEAD1C
--- NOTE | 2023-01-04 19:01 | PM.IMHP ---
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 Patient is currently still quite confused and unable to provide HPI. Father at bedside who is her healthcare proxy and supplies the majority of the HPI. Patient was apparently in her normal state of health this morning getting ready to go to work. Patient's son was visiting and noted his mother went out the door to drive to work and then a short time later she was brought back into the house supported by a neighbor. The neighbor apparently found patient outside laying on the ground next to her car. Pt was confused and minimally responsive, drifting in and out of sleep. EMS called. In the ED pt was awake and alert but confused and slow to respond. Pt can state her name and location but unaware of her situation. Cannot speak in full sentences. Pt has been undergoing radiation therapy with Dr. Aviles. Currently is on a two-week break, set to began radiation again this coming Saturday. In the ED patient was afebrile but tachycardic at 114, tachypneic at 26, and hypoxic satting at 78% RA. Labs were significant for WBC WNL, H&H of 8.4 or 25.6, VBG pH of 7.47, AST of 42, alk-phos of 195, troponin negative.CT?of head showed no evidence of acute intracranial hemorrhage or edematous territorial infarction, however it was suspicious for worsening metastatic disease. Chest CTA found no evidence for acute or chronic pulmonary embolism, but did note progression of metastasis to lungs, mediastinum, liver, and adrenal gland. EKG demonstrated sinus tachycardia of [address] elevations or depressions. Pt was treated with IVF. Pt will be admitted to the hospital for treatment and further evaluation of acute toxic metabolic enchephalopathy. Review of Systems Review of Systems: Unable to obtain due to [facility]'s [facility] Medical History Alcohol abuse Encounter to establish care Female bladder prolapse No known health problems Family History Mother Breast cancer Sister Uterine cancer Paternal Grandmother Cancer Father Diabetes Father HTN (hypertension) Surgical History History of bone marrow biopsy History of History of prolapse of bladder Social History Household Members: Children Housing: Apartment Are you a primary attending ambulatory care to a significant other at home: No Do you presently have visiting nurse or other home services: No Alcohol intake: current Alcohol intake frequency: 3 or more drinks per day Alcohol type: beer Patient Tobacco Use Status: Current everyday Tobacco user Tobacco use type: Cigarette Cigarette Packs Per Day: 1 Cigarettes Per Day: 20 e-Cigarette/Vaping Use: Never Used Second Hand Smoke Exposure: Yes Advance Directives: No Advance Directives Information Provided: No service: No Current occupational status: employed 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 Cognitive needs: No Hearing needs: No Vision needs: No Meds Allergies Allergy/AdvReac Type Severity Reaction Status Date / Time No Known Allergies Allergy Verified 12/26/22 15:36 Active Medications: Current Medications Pharmacy Consult (Consult Rx Perform Med Rec) 1 each MISCELLANE ONCE PRN PRN Reason: Consult order Home Medications Medication Instructions Recorded Confirmed Last Taken Type ondansetron 8 mg disintegrating 8 mg PO Q8H PRN Nausea 01/04/23 01/04/23 Unknown History tablet prochlorperazine maleate 10 mg 10 mg PO Q8H PRN Nausea 01/04/23 01/04/23 Unknown History tablet Physical Exam Vital Signs and Narrative: Vital Signs: Last Vital Signs Temp 98.7 F 01/04/23 15:25 Pulse 109 H 01/04/23 18:24 Resp 18 01/04/23 18:24 BP 106/80 01/04/23 18:24 Pulse Ox 96 01/04/23 18:24 O2 Del Method Nasal Cannula 01/04/23 18:24 O2 Flow Rate 2 01/04/23 18:24 BMI result Body Mass Index 25.5 Constitutional: Alert, confused, in no acute distress. Mental Status: Oriented to person and place only. Eyes: Pupils are equal, round, and reactive to light. Ear, Nose, and Throat: Oropharynx clear, mucous membranes moist. Ears and nose without deformities. Trachea midline. Respiratory: Clear to auscultation bilaterally. No wheezing, rales, or rhonchi. Cardiovascular: S1, S2 regular. No murmurs, rubs, or gallops. Gastrointestinal: Abdomen soft, non-tender, non-distended. Normal bowel sounds. Neurologic: Moves all extremities spontaneously. Skin: No rashes or lesions noted. Extremities: No edema. Results Labs 01/04/23 16:00 01/04/23 15:57 Labs: Laboratory Results - last 24 hr 01/04/23 01/04/23 01/04/23 15:57 15:57 16:00 MCV 112.3 H MCH 36.8 H MCHC 32.8 RDW 23.8 H Plt Count 305 MPV 10.5 Immature Gran % (Auto) 4.5 H Neut % (Auto) 78.0 H Lymph % (Auto) 6.9 L [place] % (Auto) 10.1 Eos % (Auto) 0.2 Baso % (Auto) 0.3 Lymph # (Auto) 0.6 L [place] # (Auto) 0.9 Eos # (Auto) 0.0 Baso # (Auto) 0.0 Abs Immat Gran (auto) 0.39 H Absolute Neuts (auto) 6.8 Absolute Nucleated RBC 0.140 H Nucleated RBC % (auto) 1.6 H VBG pH VBG pCO2 VBG pO2 VBG HCO3 VBG O2 Saturation VBG Base Excess Anion Gap 18 Estim Creat Clear Calc 99.5 Estimated GFR > 60 Random Glucose 99 Calcium 10.2 D Total Bilirubin 0.7 AST 42 H ALT 21 Alkaline Phosphatase 195 H Ammonia Total Creatine Kinase Troponin I High Sens < 3.5 Total Protein 6.9 Albumin 4.3 TSH Ethyl Alcohol < 10 COVID-19 ([facility]) COVID-19 Clin Com Blood Type Antibody Screen 01/04/23 01/04/23 01/04/23 16:47 16:47 16:47 MCV MCH MCHC RDW Plt Count MPV Immature Gran % (Auto) Neut % (Auto) Lymph % (Auto) [place] % (Auto) Eos % (Auto) Baso % (Auto) Lymph # (Auto) [place] # (Auto) Eos # (Auto) Baso # (Auto) Abs Immat Gran (auto) Absolute Neuts (auto) Absolute Nucleated RBC Nucleated RBC % (auto) VBG pH VBG pCO2 VBG pO2 VBG HCO3 VBG O2 Saturation VBG Base Excess Anion Gap Estim Creat Clear Calc Estimated GFR Random Glucose Calcium Total Bilirubin AST ALT Alkaline Phosphatase Ammonia 39 Total Creatine Kinase 69 Troponin I High Sens Total Protein Albumin TSH 1.89 Ethyl Alcohol COVID-19 ([facility]) COVID-19 Clin Com Blood Type O Positive Antibody Screen NEGATIVE 01/04/23 01/04/23 16:56 18:04 MCV MCH MCHC RDW Plt Count MPV Immature Gran % (Auto) Neut % (Auto) Lymph % (Auto) [place] % (Auto) Eos % (Auto) Baso % (Auto) Lymph # (Auto) [place] # (Auto) Eos # (Auto) Baso # (Auto) Abs Immat Gran (auto) Absolute Neuts (auto) Absolute Nucleated RBC Nucleated RBC % (auto) VBG pH 7.47 H VBG pCO2 36 VBG pO2 75 VBG HCO3 26 VBG O2 Saturation TNP VBG Base Excess 3.4 Anion Gap Estim Creat Clear Calc Estimated GFR Random Glucose Calcium Total Bilirubin AST ALT Alkaline Phosphatase Ammonia Total Creatine Kinase Troponin I High Sens Total Protein Albumin TSH Ethyl Alcohol COVID-19 ([facility]) Negative COVID-19 Clin Com See Note Blood Type Antibody Screen Imaging Radiologist's Impressions: Impressions Head CT 01/04/23 16:19 IMPRESSION: 1. No evidence of acute intracranial hemorrhage or edematous territorial infarction. 2. Multiple scattered regions of expansile white matter hypoattenuation throughout the bilateral cerebral hemispheres and deep white matter suspicious for progression of underlying metastatic disease. This critical result was discussed with Belén LEVINE at 17:35 on 01/04/2023 and it was ascertained that the content and urgency of the report was understood at the time of direct communication. Chest CTA 01/04/23 17:18 IMPRESSION: 1. No evidence for acute or chronic pulmonary embolism. 2. Progression of metastatic disease as above. VTE: negative. 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 Pt was treated with IVF. Pt will be admitted to the hospital for treatment and further evaluation of acute toxic metabolic enchephalopathy. Acute toxic metabolic encephalopathy Etiology unclear, possibly related to worsening brain metastasis; no sign of acute infection: WBC WNL, patient afebrile, CT showed no evidence for acute intracranial hemorrhage or edematous territory infarction, but was suspicious for worsening metastatic disease Decadron 10 mg now, then 4 mg q8hr MRI of the brain w/wo contrast Oncology consult NPO pending swallow evaluation Admit to telemetry Anemia Pt has been chronically anemic, has required transfusions in the past H&H 8.4/25.6 Monitor CBC Anxiety Continue lorazepam Full Code Attending:?Dr. Lopez DVT Prophylaxis: Lovenox Pt will require a hospitalization of at least two nights for treatment and further evaluation of?acute toxic metabolic encephalopathy. Time Spent With Patient Time: Total time managing care of this patient today ____ minutes. Quality Stroke Does the patient have a stroke diagnosis?: No VTE Prior VTE?: No VTE Risk Level:: Medical - moderate - high VTE Device Contraindication: Treatment Not Indicated VTE Drug Contraindication: N/A - Med Ordered
[2023-01-04] MEDS: Cyclobenzaprine HCl 5 MG TABLET PO (21:19)
[2023-01-04] MEDS: dexAMETHasone sod phosphate 10 MG/ML VIAL IVPUSH (21:19)
[2023-01-04] MEDS: Enoxaparin Sodium 40 MG/0.4 ML SYRINGE SUBCUT (21:20)
[2023-01-04 21:57] LABS: Amphetamine Screen Urine Not Detected (Not Detect); Barbiturates, Urine Not Detected (Not Detect); Benzodiazepines Screen Urine Not Detected (Not Detect); Cannabinoid Screen Urine Not Detected (Not Detect); Cocaine Screen Urine Not Detected (Not Detect); Fentanyl, urine Not Detected (Not Detect); Opiate Screen Urine Not Detected (Not Detect); Phencyclidine Screen Urine Not Detected (Not Detect)
--- NOTE | 2023-01-04 23:00 | MHC.EDTECH ---
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
--- NOTE | 2023-01-04 23:49 | PC.NURSE ---
This investment underwriter assumed care of this Pt at 2300. Pt awakens upon tactile stimulation but unable to stay awake to answer questions, A&O to self and place. Denies any pain, Pt sinus tach on bedside monitor, sat o2 94% on 2L via NC, will CTM.
[2023-01-05] MEDS: 0.9 % Sodium Chloride Flush 3 ML SYRINGE IVFLUSH ×4 (00:08→20:21)
--- NOTE | 2023-01-05 01:30 | PC.NURSE ---
PT pulling at wires/purewhick, redirectable. Pt incontinent of urine, nely care provided and new linens placed, repositioned.
[2023-01-05 02:08] VITALS: BP 133/75; PULSE 94; RESP 20; O2SAT 99
--- NOTE | 2023-01-05 02:29 | PC.NURSE ---
RN to RN report given. Pt will be transported to room 445 by hazardous waste material technician.
[2023-01-05 03:13] VITALS: BP 125/83; PULSE 103; RESP 16; TEMP 36.6; O2SAT 96
[2023-01-05] MEDS: dexAMETHasone sod phosphate 4 MG/ML VIAL IVPUSH ×3 (05:24→20:20)
[2023-01-05 06:36] LABS: Hematocrit 24.1 % (37.0-47.0); Hemoglobin 8.1 g/dl (12.0-16.0); Mean Corpuscular HGB Conc 33.6 g/dl (31.0-35.0); Mean Corpuscular Hemoglobin 37.9 pg (27.0-33.0); Mean Platelet Volume 10.7 fL (9.4-12.3); Platelet Count 337 X10*3/uL (160-400); Red Blood Count 2.14 X10*6/uL (4.20-5.50); Red Cell Distribution Width 23.2 % (11.0-16.0); White Blood Count 7.8 X10*3/uL (4.8-10.8)
[2023-01-05 06:39] LABS: Mean Corpuscular Volume 112.6 fL (80.0-98.0)
[2023-01-05] MEDS: Ezetimibe 10 MG TABLET PO (09:53)
[2023-01-05] MEDS: Cholecalciferol (Vitamin D3) 25 MCG TABLET PO (09:53)
[2023-01-05] MEDS: Cyclobenzaprine HCl 5 MG TABLET PO (09:54)
--- NOTE | 2023-01-05 09:54 | MHC.CM.PN ---
Patient is here with AMS and s/s of Confusion, CM spoke with Daughter/HCP/Gail @ [phone]. 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 Home/self care is the goal and CM has initiated and will follow for dc planning. Patient is not covid vax'd and her PCP is Dr. Sharon Vega.
--- NOTE | 2023-01-05 10:24 | HO.PM.IMPN ---
Subjective Subjective Date of Service: 01/05/23 Interval History: Seen and evaluated alert, confused denies any specific complaints Sitter in room as she tries to jump off the bed pending MRI Review of Systems Review of Systems: Yes all other systems are reviewed and are negative Physical Exam Vital Signs: Vital Signs: Last Vital Signs Temp 97.9 F 01/05/23 03:13 Pulse 103 H 01/05/23 03:13 Resp 16 01/05/23 03:13 BP 125/83 01/05/23 03:13 Pulse Ox 96 01/05/23 03:13 O2 Del Method Nasal Cannula 01/05/23 03:13 O2 Flow Rate 2 01/05/23 03:13 Oxygen Flow Rate 2 01/04/23 21:46 BMI result Body Mass Index 25.5 Const: Other: Constitutional : Awake, interactive, not in distress Neck : Normal inspection, Supple Cardiovascular : RRR, no JVP, no lower extremity edema Respiratory : good bilateral air entry, no crackles, wheezes or rhonchi Gastrointestinal: soft, lax, Normal bowel sounds, Non tender Skin : Warm, Dry Neurological : Alert & disoriented, No focal deficit Objective Data Active Medications Acetaminophen (Acetaminophen 325 Mg Tablet) 650 mg PO Q6H PRN PRN Reason: Pain, Mild (Pain Scale 1-3) Cyclobenzaprine HCl (Cyclobenzaprine Hcl 5 Mg Tablet) 5 mg PO TID [facility] Last Admin: 01/05/23 09:54 Dose: 5 mg Documented By: EMMANUEL Dexamethasone Sodium Phosphate (Dexamethasone Sod Phosphate 4 Mg/Ml Vial) 4 mg IVPUSH Q8H [facility] Last Admin: 01/05/23 05:24 Dose: 4 mg Documented By: SUSANNAH Ezetimibe (Ezetimibe 10 Mg Tablet) 10 mg PO DAILY [facility] Last Admin: 01/05/23 09:53 Dose: 10 mg Documented By: EMMANUEL Enoxaparin Sodium (Enoxaparin Sodium 40 Mg/0.4 Ml Syringe) 40 mg SUBCUT Q24H [facility] Last Admin: 01/04/23 21:20 Dose: 40 mg Documented By: RUDDY Lorazepam (Lorazepam 0.5 Mg Tablet) 0.5 mg PO TID PRN PRN Reason: Anxiety Morphine Sulfate (Morphine Sulfate 4 Mg/Ml Cartridge) 4 mg IVPUSH Q6H PRN; Protocol PRN Reason: Pain, Severe (Pain Scale 7-10) Ondansetron HCl (Ondansetron Odt 8 Mg Tab.Rapdis) 8 mg TRANSLINGU Q8H PRN PRN Reason: Nausea Pharmacy Consult (Consult Rx Perform Med Rec) 1 each MISCELLANE ONCE PRN PRN Reason: Consult order Prochlorperazine Maleate (Prochlorperazine Maleate 5 Mg Tablet) 10 mg PO Q8H PRN PRN Reason: Nausea Sodium Chloride (0.9 % Sodium Chloride Flush 3 Ml Syringe) 3 ml IVFLUSH QSHIFT [facility] Last Admin: 01/05/23 09:54 Dose: 3 ml Documented By: EMMANUEL Vitamin D (Cholecalciferol (Vitamin D3) 25 Mcg Tablet) 25 mcg PO DAILY [facility] Last Admin: 01/05/23 09:53 Dose: 25 mcg Documented By: EMMANUEL Labs 01/05/23 06:14 01/04/23 15:57 Labs: Laboratory Results - last 24 hr 01/04/23 01/04/23 01/04/23 15:57 15:57 16:00 MCV 112.3 H MCH 36.8 H MCHC 32.8 RDW 23.8 H Plt Count 305 MPV 10.5 Immature Gran % (Auto) 4.5 H Neut % (Auto) 78.0 H Lymph % (Auto) 6.9 L Vermilion % (Auto) 10.1 Eos % (Auto) 0.2 Baso % (Auto) 0.3 Lymph # (Auto) 0.6 L [place] # (Auto) 0.9 Eos # (Auto) 0.0 Baso # (Auto) 0.0 Abs Immat Gran (auto) 0.39 H Absolute Neuts (auto) 6.8 Absolute Nucleated RBC 0.140 H Nucleated RBC % (auto) 1.6 H VBG pH VBG pCO2 VBG pO2 VBG HCO3 VBG O2 Saturation VBG Base Excess Anion Gap 18 Estim Creat Clear Calc 99.5 Estimated GFR > 60 Random Glucose 99 Calcium 10.2 D Total Bilirubin 0.7 AST 42 H ALT 21 Alkaline Phosphatase 195 H Ammonia Total Creatine Kinase Troponin I High Sens < 3.5 Total Protein 6.9 Albumin 4.3 TSH Urine Opiates Screen Urine Fentanyl Screen Ur Barbiturates Screen Ur Phencyclidine Scrn Ur Amphetamines Screen U Benzodiazepines Scrn Urine Cocaine Screen U Marijuana (THC) Screen Ethyl Alcohol < 10 COVID-19 ([facility]) COVID-[address] Com Blood Type Antibody Screen 01/04/23 01/04/23 01/04/23 16:47 16:47 16:47 MCV MCH MCHC RDW Plt Count MPV Immature Gran % (Auto) Neut % (Auto) Lymph % (Auto) Vermilion % (Auto) Eos % (Auto) Baso % (Auto) Lymph # (Auto) Vermilion # (Auto) Eos # (Auto) Baso # (Auto) Abs Immat Gran (auto) Absolute Neuts (auto) Absolute Nucleated RBC Nucleated RBC % (auto) VBG pH VBG pCO2 VBG pO2 VBG HCO3 VBG O2 Saturation VBG Base Excess Anion Gap Estim Creat Clear Calc Estimated GFR Random Glucose Calcium Total Bilirubin AST ALT Alkaline Phosphatase Ammonia 39 Total Creatine Kinase 69 Troponin I High Sens Total Protein Albumin TSH 1.89 Urine Opiates Screen Urine Fentanyl Screen Ur Barbiturates Screen Ur Phencyclidine Scrn Ur Amphetamines Screen U Benzodiazepines Scrn Urine Cocaine Screen U Marijuana (THC) Screen Ethyl Alcohol COVID-19 ([facility]) COVID-[address] Com Blood Type O Positive Antibody Screen NEGATIVE 01/04/23 01/04/23 01/04/23 16:56 18:04 21:39 MCV MCH MCHC RDW Plt Count MPV Immature Gran % (Auto) Neut % (Auto) Lymph % (Auto) [place] % (Auto) Eos % (Auto) Baso % (Auto) Lymph # (Auto) [place]ilion # (Auto) Eos # (Auto) Baso # (Auto) Abs Immat Gran (auto) Absolute Neuts (auto) Absolute Nucleated RBC Nucleated RBC % (auto) VBG pH 7.47 H VBG pCO2 36 VBG pO2 75 VBG HCO3 26 VBG O2 Saturation TNP VBG Base Excess 3.4 Anion Gap Estim Creat Clear Calc Estimated GFR Random Glucose Calcium Total Bilirubin AST ALT Alkaline Phosphatase Ammonia Total Creatine Kinase Troponin I High Sens Total Protein Albumin TSH Urine Opiates Screen Not Detected Urine Fentanyl Screen Not Detected Ur Barbiturates Screen Not Detected Ur Phencyclidine Scrn Not Detected Ur Amphetamines Screen Not Detected U Benzodiazepines Scrn Not Detected Urine Cocaine Screen Not Detected U Marijuana (THC) Screen Not Detected Ethyl Alcohol COVID-19 ([facility]) Negative COVID-[address] Com See Note Blood Type Antibody Screen 01/05/23 06:14 MCV 112.6 H MCH 37.9 H MCHC 33.6 RDW 23.2 H Plt Count 337 MPV 10.7 Immature Gran % (Auto) Neut % (Auto) Lymph % (Auto) Vermilion % (Auto) Eos % (Auto) Baso % (Auto) Lymph # (Auto) Vermilion # (Auto) Eos # (Auto) Baso # (Auto) Abs Immat Gran (auto) Absolute Neuts (auto) Absolute Nucleated RBC 0.080 H Nucleated RBC % (auto) 1.0 H VBG pH VBG pCO2 VBG pO2 VBG HCO3 VBG O2 Saturation VBG Base Excess Anion Gap Estim Creat Clear Calc Estimated GFR Random Glucose Calcium Total Bilirubin AST ALT Alkaline Phosphatase Ammonia Total Creatine Kinase Troponin I High Sens Total Protein Albumin TSH Urine Opiates Screen Urine Fentanyl Screen Ur Barbiturates Screen Ur Phencyclidine Scrn Ur Amphetamines Screen U Benzodiazepines Scrn Urine Cocaine Screen U Marijuana (THC) Screen Ethyl Alcohol COVID-19 ([facility]) COVID-19 Clin Com Blood Type Antibody Screen Assessment and Plan (1) Acute encephalopathy: Status: Acute Plan Pt is a 47-year-old female with a PMH significant for?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 Pt was treated with IVF. Pt will be admitted to the hospital for treatment and further evaluation of acute toxic metabolic enchephalopathy. Acute toxic metabolic encephalopathy likely 2/2 brain metastasis; no sign of acute infection: WBC WNL, patient afebrile, CT showed no evidence for acute intracranial hemorrhage or edematous territory infarction, but was suspicious for worsening metastatic disease Decadron 4 mg q8hr MRI of the brain w/wo contrast Oncology consult NPO pending swallow evaluation Admit to telemetry Anemia chronically anemic, has required transfusions in the past H&H 8.02/05.6 Monitor CBC Anxiety Continue lorazepam Full Code DVT Prophylaxis: Lovenox Pt will require a hospitalization of overnight for treatment and further evaluation of?acute toxic metabolic encephalopathy. Time Spent With Patient Time: Total time managing care of this patient today ____ minutes. Quality Stroke Does the patient have a stroke diagnosis?: No VTE Prior VTE?: No VTE Risk Level:: Medical - moderate - high VTE Device Contraindication: Treatment Not Indicated VTE Drug Contraindication: N/A - Med Ordered
[2023-01-05 10:50] VITALS: BP 125/83; PULSE 103; O2SAT 96
[2023-01-05] MEDS: Morphine Sulfate 4 MG/ML CARTRIDGE IVPUSH ×2 (13:12→20:21)
[2023-01-05] MEDS: LORazepam 2 MG/ML VIAL IVPUSH (14:32)
[2023-01-05 15:50] VITALS: BP 132/69; PULSE 98; RESP 18; TEMP 36.5; O2SAT 91
--- NOTE | 2023-01-05 16:13 | PM.HEMONCCN ---
Subjective - Subjective Chief complaint: Consult for: Progressive Brain Mets,2. Small Cell Ca of Lung. Patient: known to practice within the last 3 years Consult date: 01/05/23 Requesting Physician: Tristin. Primary Care Provider: Unknown Physician Medical Summary: DIAGNOSIS: 1. Progressive Brain Metastases. 2. Small Cell Lung Cancer. HPI - Consult Narrative Reason for consult: CONSULT FOR:1. Worsening Brain Metastases. 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 Brain Mets, S/P RT, this november. She has been on second line chemotherapy with Topotecan. She was in her usual state of health, when she was found on the ground infront of her home, on the way to work, yesterday. CAT Scan of head revealed: Multiple scattered regions of expansile white matter hypoattentuation throughout B/L cerebral hemispheres and deep white matter. Progression of mets. CAT Scan of chest: Disease progression. She has been started on IV Decadron. Review of Systems - Constitutional Reports system reviewed and no additional complaints, except as documented, Reports lack of energy, Reports weakness, Reports weight loss - Eyes Reports system reviewed and no additional complaints, except as documented - ENT Reports system reviewed and no additional complaints, except as documented - Cardiovascular Reports system reviewed and no additional complaints, except as documented - Respiratory Reports no additional respiratory complaints - Gastrointestinal Reports system reviewed and no additional complaints, except as documented - Genitourinary Reports no additional female genitourinary complaints - Musculoskeletal Reports system reviewed and no additional complaints, except as documented - Integumentary/Breasts Skin/Breast: Reports no additional skin complaints - Neurologic Reports system reviewed and no additional complaints, except as documented, Reports confusion - Psychiatric Reports system reviewed and no additional complaints, except as documented - Endocrine Reports no additional endocrine complaints - Hematologic/Lymphatic Reports system reviewed and no additional complaints, except as documented - Allergic/Immunologic Reports system reviewed and no additional complaints, except as documented Oncology Screenings - ECOG Performance Status ECOG Performance Status: 2 PMFSH Medical History: Medical History (Last Reviewed 01/05/23 @ 10:51 by Kirsten Regan, PT) Alcohol abuse Encounter to establish care Female bladder prolapse No known health problems Functional capacity: wheelchair bound Patient : No Family History: Family History (Last Reviewed 01/04/23 @ 21:08 by ABNER Ramírez) Mother Breast cancer Sister Uterine cancer Paternal Grandmother Cancer Father Diabetes Father HTN (hypertension) Surgical History: Surgical History (Last Reviewed 01/05/23 @ 10:51 by Kirsten Regan PT) History of bone marrow biopsy History of History of prolapse of bladder Social History: Social History (Last Reviewed 01/04/23 @ 21:08 by ABNER Ramírez) Living Situation History: Household Members: Family Housing: Apartment Are you a primary home care assistant to a significant other at home: No Do you presently have visiting nurse or other home services: No Alcohol History: Unable to assess alcohol history related to: Unknown Tobacco History: Patient Tobacco Use Status: Tobacco use Unknown Tobacco use type: Cigarette Cigarette Packs Per Day: 1 e-Cigarette/Vaping Use: Never Used Second Hand Smoke Exposure: Yes Occupation Assessmet: service: No Current occupational status: employed 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 Home Medications and Allergies Current Medications: Current Medications Acetaminophen (Acetaminophen 325 Mg Tablet) 650 mg PO Q6H PRN PRN Reason: Pain, Mild (Pain Scale 1-3) Cyclobenzaprine HCl (Cyclobenzaprine Hcl 5 Mg Tablet) 5 mg PO TID [facility] Last Admin: 01/05/23 09:54 Dose: 5 mg Dexamethasone Sodium Phosphate (Dexamethasone Sod Phosphate 4 Mg/Ml Vial) 4 mg IVPUSH Q8H [facility] Last Admin: 01/05/23 13:11 Dose: 4 mg Ezetimibe (Ezetimibe 10 Mg Tablet) 10 mg PO DAILY [facility] Last Admin: 01/05/23 09:53 Dose: 10 mg Enoxaparin Sodium (Enoxaparin Sodium 40 Mg/0.4 Ml Syringe) 40 mg SUBCUT Q24H [facility] Last Admin: 01/04/23 21:20 Dose: 40 mg Lorazepam (Lorazepam 0.5 Mg Tablet) 0.5 mg PO TID PRN PRN Reason: Anxiety Morphine Sulfate (Morphine Sulfate 4 Mg/Ml Cartridge) 4 mg IVPUSH Q6H PRN; Protocol PRN Reason: Pain, Severe (Pain Scale 7-10) Last Admin: 01/05/23 13:12 Dose: 4 mg Ondansetron HCl (Ondansetron Odt 8 Mg Tab.Rapdis) 8 mg TRANSLINGU Q8H PRN PRN Reason: Nausea Pharmacy Consult (Consult Rx Perform Med Rec) 1 each MISCELLANE ONCE PRN PRN Reason: Consult order Prochlorperazine Maleate (Prochlorperazine Maleate 5 Mg Tablet) 10 mg PO Q8H PRN PRN Reason: Nausea Sodium Chloride (0.9 % Sodium Chloride Flush 3 Ml Syringe) 3 ml IVFLUSH QSHIFT [facility] Last Admin: 01/05/23 14:33 Dose: 3 ml Vitamin D (Cholecalciferol (Vitamin D3) 25 Mcg Tablet) 25 mcg PO DAILY [facility] Last Admin: 01/05/23 09:53 Dose: 25 mcg Home Medications Medication Instructions Recorded Confirmed Type ondansetron 8 mg disintegrating 8 mg PO Q8H PRN Nausea 01/04/23 01/04/23 History tablet prochlorperazine maleate 10 mg 10 mg PO Q8H PRN Nausea 01/04/23 01/04/23 History tablet Allergies Allergy/AdvReac Type Severity Reaction Status Date / Time No Known Allergies Allergy Verified 12/26/22 15:36 Physical Exam Vital signs: Vital Signs Temp 97.7 F 01/05/23 15:50 Pulse 98 01/05/23 15:50 Resp 18 01/05/23 15:50 BP 132/69 01/05/23 15:50 Pulse Ox 91 L 01/05/23 15:50 O2 Del Method Room Air 01/05/23 15:50 O2 Flow Rate 2 01/05/23 03:13 Intake & Output 01/04/23 01/05/23 01/05/23 18:59 06:59 18:59 Intake Total 1000 / 1000 Balance 1000 / 1000 Intake: Intake, IV Amount 1000 / 1000 0.9 % Sodium Chloride 1,000 ml 1000 / 1000 @ 999 mls/hr IVCONT .Q1H1M [facility] Rx#:[id number] Other: Meal Refused No NPO Npo Breakfast % Eaten 0% Lunch % Eaten 0% Number of Incontinent Voids 2 Urine purewick Weight 69.6 kg Weight 69.6 kg - Constitutional Present: moderate distress - Routine HEENT Exam Eye: Present: normal appearance ENT: Present: mucous membranes moist Hem/Onc Consult Result - Labs CBC & Chem 7: 01/06/23 06:27 01/06/23 06:27 Labs: Short CBC 01/04/23 01/05/23 Range/Units 16:00 06:14 WBC 8.8 7.8 (4.8-10.8) X10*3/uL Hgb 8.4 L 8.1 L (12.0-16.0) g/dl Hct 25.6 L 24.1 L (37.0-47.0) % Plt Count 305 337 (160-400) X10*3/uL BMP 01/04/23 15:57 Sodium 135 Potassium 3.6 Chloride 97 Carbon Dioxide 24 BUN 12 Creatinine 0.67 Calcium 10.2 D Cardiac Enzymes 01/04/23 Range/Units 16:47 Total Creatine Kinase 69 (26-140) U/L Liver Function 01/04/23 Range/Units 15:57 Total Bilirubin 0.7 (0.0-1.0) mg/dL AST 42 H (5-31) U/L ALT 21 (0-31) U/L Alkaline Phosphatase 195 H (39-117) U/L Albumin 4.3 (3.5-5.0) g/dL Assessment and Plan Patient Active problem list reviewed?: Yes (1) Brain metastases Status: Acute Assessment and plan: 47 year old lady with H/O Small Cell Lung Cabcer, and brain mets, now presents with mental confusion and a fall. Noted to have progressive Brain Mets. She has recently had XRT to brain, in November. PLAN: Has been started on IV Decadron. Will check with radiation therapist if there is room for more palliative radiation. Continue comfort measures and symptomatic treatment. Thanks, Addendum: MRI revealed: Disease progression. Discussed situation with Dad. He agreed to refer to hospice. Will refer. - Time Spent With Patient Time Spent with Patient (in minutes): 30
[2023-01-05 20:00] VITALS: BP 117/71; PULSE 109; RESP 16; TEMP 36.4; O2SAT 91
[2023-01-05] MEDS: Enoxaparin Sodium 40 MG/0.4 ML SYRINGE SUBCUT (20:20)
[2023-01-06] MEDS: Morphine Sulfate 4 MG/ML CARTRIDGE IVPUSH (01:18)
[2023-01-06 03:33] VITALS: BP 133/59; PULSE 112; RESP 18; TEMP 36.6; O2SAT 95
[2023-01-06] MEDS: dexAMETHasone sod phosphate 4 MG/ML VIAL IVPUSH ×3 (05:44→23:23)
[2023-01-06 07:42] LABS: Hematocrit 24.5 % (37.0-47.0); Hemoglobin 8.1 g/dl (12.0-16.0); Mean Corpuscular HGB Conc 33.1 g/dl (31.0-35.0); Mean Platelet Volume 10.4 fL (9.4-12.3); Platelet Count 441 X10*3/uL (160-400); Red Blood Count 2.13 X10*6/uL (4.20-5.50); Red Cell Distribution Width 24.4 % (11.0-16.0); White Blood Count 8.1 X10*3/uL (4.8-10.8)
[2023-01-06 07:47] VITALS: BP 112/63; PULSE 103; RESP 16; TEMP 36.4; O2SAT 91
[2023-01-06 07:53] LABS: NRBC Pct Auto 1.9 /100WBC (0.0-0.2)
[2023-01-06 08:36] LABS: Anion Gap 14 (12-20); Blood Urea Nitrogen 15 mg/dL (9-16); Calcium 9.4 mg/dL (8.4-10.2); Carbon Dioxide 26 mmol/L (22-29); Chloride 99 mmol/L (96-108); Creatinine Clr Calc Pharmacy 107.4; Estimated Glomerular Filt Rate > 60; Glucose Random 81 mg/dL (60-115); Potassium 4.4 mmol/L (3.3-5.1); Sodium 135 mmol/L (135-145)
--- NOTE | 2023-01-06 09:20 | MHC.CM.PN ---
Per MD, plan/goal is home tomorrow to Father's house with Hospice. CM has made a referral to [facility] and requested an INFORMATIONAL, with a goal of home with Hospice tomorrow. CM will follow.
[2023-01-06] MEDS: Cyclobenzaprine HCl 5 MG TABLET PO ×3 (09:44→19:37)
[2023-01-06] MEDS: Ezetimibe 10 MG TABLET PO (09:45)
[2023-01-06] MEDS: 0.9 % Sodium Chloride Flush 3 ML SYRINGE IVFLUSH ×3 (09:45→19:42)
[2023-01-06] MEDS: Cholecalciferol (Vitamin D3) 25 MCG TABLET PO (09:45)
--- NOTE | 2023-01-06 10:58 | HO.PM.IMPN ---
Subjective Subjective Date of Service: 01/06/23 Interval History: Seen and evaluated alert, confused denies any specific complaints Sitter in room as she tries to jump off the bed MRI showed significant brain mets discussed goals of care with family, home hospice. Review of Systems Review of Systems: Yes all other systems are reviewed and are negative Physical Exam Vital Signs: Vital Signs: Last Vital Signs Temp 97.5 F 01/06/23 07:47 Pulse 103 H 01/06/23 07:47 Resp 16 01/06/23 07:47 BP 112/63 01/06/23 07:47 Pulse Ox 91 L 01/06/23 07:47 O2 Del Method Room Air 01/06/23 07:47 O2 Flow Rate 2 01/05/23 03:13 Oxygen Flow Rate 2 01/04/23 21:46 BMI result Body Mass Index 25.5 Const: Other: Constitutional : Awake, interactive, not in distress Neck : Normal inspection, Supple Cardiovascular : RRR, no JVP, no lower extremity edema Respiratory : good bilateral air entry, no crackles, wheezes or rhonchi Gastrointestinal: soft, lax, Normal bowel sounds, Non tender Skin : Warm, Dry Neurological : Alert & disoriented, No focal deficit Objective Data Active Medications Acetaminophen (Acetaminophen 325 Mg Tablet) 650 mg PO Q6H PRN PRN Reason: Pain, Mild (Pain Scale 1-3) Cyclobenzaprine HCl (Cyclobenzaprine Hcl 5 Mg Tablet) 5 mg PO TID [facility] Last Admin: 01/06/23 09:44 Dose: 5 mg Documented By: EMMANUEL Dexamethasone Sodium Phosphate (Dexamethasone Sod Phosphate 4 Mg/Ml Vial) 4 mg IVPUSH Q8H [facility] Last Admin: 01/06/23 05:44 Dose: 4 mg Documented By: ANTABDIAZIZ Ezetimibe (Ezetimibe 10 Mg Tablet) 10 mg PO DAILY [facility] Last Admin: 01/06/23 09:45 Dose: 10 mg Documented By: EMMANUEL Enoxaparin Sodium (Enoxaparin Sodium 40 Mg/0.4 Ml Syringe) 40 mg SUBCUT Q24H [facility] Last Admin: 01/05/23 20:20 Dose: 40 mg Documented By: DARLENE Lorazepam (Lorazepam 0.5 Mg Tablet) 0.5 mg PO TID PRN PRN Reason: Anxiety Morphine Sulfate (Morphine Sulfate 4 Mg/Ml Cartridge) 4 mg IVPUSH Q6H PRN; Protocol PRN Reason: Pain, Severe (Pain Scale 7-10) Last Admin: 01/06/23 01:18 Dose: 4 mg Ondansetron HCl (Ondansetron Odt 8 Mg Tab.Rapdis) 8 mg TRANSLINGU Q8H PRN PRN Reason: Nausea Pharmacy Consult (Consult Rx Perform Med Rec) 1 each MISCELLANE ONCE PRN PRN Reason: Consult order Prochlorperazine Maleate (Prochlorperazine Maleate 5 Mg Tablet) 10 mg PO Q8H PRN PRN Reason: Nausea Sodium Chloride (0.9 % Sodium Chloride Flush 3 Ml Syringe) 3 ml IVFLUSH QSHIFT [facility] Last Admin: 01/06/23 09:45 Dose: 3 ml Documented By: EMMANUEL Vitamin D (Cholecalciferol (Vitamin D3) 25 Mcg Tablet) 25 mcg PO DAILY [facility] Last Admin: 01/06/23 09:45 Dose: 25 mcg Documented By: EMMANUEL Labs 01/06/23 06:27 01/06/23 06:27 Labs: Laboratory Results - last 24 hr 01/06/23 01/06/23 06:27 06:27 MCV 115.0 H MCH 38.0 H MCHC 33.1 RDW 24.4 H Plt Count 441 H D MPV 10.4 Absolute Nucleated RBC 0.150 H Nucleated RBC % (auto) 1.9 H Anion Gap 14 Estim Creat Clear Calc 107.4 Estimated GFR > 60 Random Glucose 81 Calcium 9.4 D Assessment and Plan (1) Brain metastases: Status: Acute (2) Acute encephalopathy: Status: Acute Plan Pt is a 47-year-old female with a PMH significant for?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 Pt was treated with IVF. Pt will be admitted to the hospital for treatment and further evaluation of acute toxic metabolic enchephalopathy. Acute toxic metabolic encephalopathy likely 2/2 brain metastasis; no sign of acute infection: WBC WNL, patient afebrile, CT showed no evidence for acute intracranial hemorrhage or edematous territory infarction, but was suspicious for worsening metastatic disease Decadron 4 mg q8hr MRI of the brain showed worsening metastasis Oncology consult, hospice referral regular diet waiting HCP to sign [facility] hospice referral Anemia chronically anemic, has required transfusions in the past H&H 8.4/25.6 Monitor CBC Anxiety Continue lorazepam Full Code DVT Prophylaxis: Lovenox Pt will require a hospitalization of overnight for treatment and further evaluation of?acute toxic metabolic encephalopathy pendig safe discharge plan Time Spent With Patient Time: Total time managing care of this patient today ____ minutes. Quality Stroke Does the patient have a stroke diagnosis?: No VTE Prior VTE?: No VTE Risk Level:: Medical - moderate - high VTE Device Contraindication: Treatment Not Indicated VTE Drug Contraindication: N/A - Med Ordered
[2023-01-06 11:29] VITALS: BP 115/72; PULSE 98; RESP 16; TEMP 37.2; O2SAT 95
[2023-01-06] MEDS: Morphine Sulfate 4 MG/ML CARTRIDGE 2 MG IVPUSH ×2 (13:04→19:38)
[2023-01-06 15:26] VITALS: BP 97/57; PULSE 94; RESP 18; TEMP 36.6; O2SAT 93
[2023-01-06] MEDS: LORazepam 0.5 MG TABLET PO (18:41)
[2023-01-06] MEDS: Nicotine 21 MG PATCH.TD24 TRANSDERMA (19:37)
[2023-01-06 20:00] VITALS: BP 119/74; PULSE 90; RESP 18; TEMP 36.6; O2SAT 92
[2023-01-06] MEDS: Enoxaparin Sodium 40 MG/0.4 ML SYRINGE SUBCUT (23:26)
[2023-01-07 04:00] VITALS: BP 119/66; PULSE 90; RESP 18; TEMP 36.3; O2SAT 94
[2023-01-07] MEDS: dexAMETHasone sod phosphate 4 MG/ML VIAL IVPUSH ×3 (05:25→21:19)
[2023-01-07] MEDS: Morphine Sulfate 4 MG/ML CARTRIDGE 2 MG IVPUSH ×2 (05:28→17:06)
[2023-01-07 07:56] VITALS: BP 122/67; PULSE 92; RESP 18; TEMP 36.2; O2SAT 97
[2023-01-07] MEDS: 0.9 % Sodium Chloride Flush 3 ML SYRINGE IVFLUSH ×3 (09:44→21:22)
[2023-01-07] MEDS: Cholecalciferol (Vitamin D3) 25 MCG TABLET PO (09:44)
[2023-01-07] MEDS: Cyclobenzaprine HCl 5 MG TABLET PO ×3 (09:45→21:19)
[2023-01-07] MEDS: Nicotine 21 MG PATCH.TD24 TRANSDERMA (09:45)
[2023-01-07] MEDS: Ezetimibe 10 MG TABLET PO (09:45)
[2023-01-07 11:08] VITALS: BP 125/69; PULSE 97; RESP 18; TEMP 36.1; O2SAT 98
--- NOTE | 2023-01-07 12:45 | HO.PM.IMPN ---
Subjective Subjective Date of Service: 01/07/23 Interval History: Seen and evaluated alert, confused denies any specific complaints no overnight events reported Review of Systems Review of Systems: Yes all other systems are reviewed and are negative Physical Exam Vital Signs: Vital Signs: Last Vital Signs Temp 96.9 F 01/07/23 11:08 Pulse 97 01/07/23 11:08 Resp 18 01/07/23 11:08 BP 125/69 01/07/23 11:08 Pulse Ox 98 01/07/23 11:08 O2 Del Method Room Air 01/07/23 11:08 O2 Flow Rate 2 01/05/23 03:13 Oxygen Flow Rate 2 01/04/23 21:46 BMI result Body Mass Index 25.5 Const: Other: Constitutional : Awake, interactive, not in distress Neck : Normal inspection, Supple Cardiovascular : RRR, no JVP, no lower extremity edema Respiratory : good bilateral air entry, no crackles, wheezes or rhonchi Gastrointestinal: soft, lax, Normal bowel sounds, Non tender Skin : Warm, Dry Neurological : Alert & disoriented, No focal deficit Objective Data Active Medications Acetaminophen (Acetaminophen 325 Mg Tablet) 650 mg PO Q6H PRN PRN Reason: Pain, Mild (Pain Scale 1-3) Cyclobenzaprine HCl (Cyclobenzaprine Hcl 5 Mg Tablet) 5 mg PO TID [facility] Last Admin: 01/07/23 09:45 Dose: 5 mg Documented By: YAAKOV Dexamethasone Sodium Phosphate (Dexamethasone Sod Phosphate 4 Mg/Ml Vial) 4 mg IVPUSH Q8H [facility] Last Admin: 01/07/23 05:25 Dose: 4 mg Documented By: SALONI Ezetimibe (Ezetimibe 10 Mg Tablet) 10 mg PO DAILY [facility] Last Admin: 01/07/23 09:45 Dose: 10 mg Documented By: YAAKOV Enoxaparin Sodium (Enoxaparin Sodium 40 Mg/0.4 Ml Syringe) 40 mg SUBCUT Q24H [facility] Last Admin: 01/06/23 23:26 Dose: 40 mg Documented By: SALONI Lorazepam (Lorazepam 0.5 Mg Tablet) 0.5 mg PO TID PRN PRN Reason: Anxiety Last Admin: 01/06/23 18:41 Dose: 0.5 mg Documented By: EMMANUEL Morphine Sulfate (Morphine Sulfate 4 Mg/Ml Cartridge) 2 mg IVPUSH Q6H PRN; Protocol PRN Reason: Pain, Severe (Pain Scale 7-10) Last Admin: 01/07/23 05:28 Dose: 2 mg Documented By: SALONI Nicotine (Nicotine 21 Mg Patch.Td24) 21 mg TRANSDERMA DAILY [facility] Last Admin: 01/07/23 09:45 Dose: 21 mg Documented By: YAAKOV Ondansetron HCl (Ondansetron Odt 8 Mg Tab.Rapdis) 8 mg TRANSLINGU Q8H PRN PRN Reason: Nausea Pharmacy Consult (Consult Rx Perform Med Rec) 1 each MISCELLANE ONCE PRN PRN Reason: Consult order Prochlorperazine Maleate (Prochlorperazine Maleate 5 Mg Tablet) 10 mg PO Q8H PRN PRN Reason: Nausea Sodium Chloride (0.9 % Sodium Chloride Flush 3 Ml Syringe) 3 ml IVFLUSH QSHIFT [facility] Last Admin: 01/07/23 09:44 Dose: 3 ml Documented By: YAAKOV Vitamin D (Cholecalciferol (Vitamin D3) 25 Mcg Tablet) 25 mcg PO DAILY [facility] Last Admin: 01/07/23 09:44 Dose: 25 mcg Documented By: YAAKOV Labs 01/06/23 06:27 01/06/23 06:27 Labs: Laboratory Results - last 24 hr 01/06/23 06:27 Smear Path Review SEE NOTE Assessment and Plan (1) Brain metastases: Status: Acute (2) Acute encephalopathy: Status: Acute Plan Pt is a 47-year-old female with a PMH significant for?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 Pt was treated with IVF. Pt will be admitted to the hospital for treatment and further evaluation of acute toxic metabolic enchephalopathy. Acute toxic metabolic encephalopathy likely 2/2 brain metastasis; no sign of acute infection: WBC WNL, patient afebrile, CT showed no evidence for acute intracranial hemorrhage or edematous territory infarction, but was suspicious for worsening metastatic disease Decadron 4 mg q8hr MRI of the brain showed worsening metastasis Oncology consult, hospice referral regular diet hospice referral Anemia chronically anemic, has required transfusions in the past H&H 8.4/25.6 Monitor CBC Anxiety Continue lorazepam Full Code DVT Prophylaxis: Lovenox Pt will require a hospitalization of overnight for treatment and further evaluation of?acute toxic metabolic encephalopathy pendig safe discharge plan Time Spent With Patient Time: Total time managing care of this patient today ____ minutes. Quality Stroke Does the patient have a stroke diagnosis?: No VTE Prior VTE?: No VTE Risk Level:: Medical - moderate - high VTE Device Contraindication: Treatment Not Indicated VTE Drug Contraindication: N/A - Med Ordered
[2023-01-07 15:12] VITALS: BP 119/76; PULSE 93; RESP 15; TEMP 36.4; O2SAT 93
[2023-01-07 19:53] VITALS: BP 121/67; PULSE 100; RESP 14; TEMP 36.3; O2SAT 92
[2023-01-07] MEDS: Acetaminophen 325 MG TABLET 650 MG PO (21:19)
[2023-01-07] MEDS: Enoxaparin Sodium 40 MG/0.4 ML SYRINGE SUBCUT (21:20)
[2023-01-08] VITALS: BP 118/70; PULSE 108; RESP 20; TEMP 36.4; O2SAT 97
[2023-01-08 02:52] VITALS: BP 125/78; PULSE 93; RESP 20; TEMP 36.1; O2SAT 95
[2023-01-08] MEDS: dexAMETHasone sod phosphate 4 MG/ML VIAL IVPUSH ×2 (06:01→13:36)
[2023-01-08 07:19] VITALS: BP 124/76; PULSE 93; RESP 20; TEMP 36; O2SAT 98
[2023-01-08] MEDS: Nicotine 21 MG PATCH.TD24 TRANSDERMA (09:06)
[2023-01-08] MEDS: Cyclobenzaprine HCl 5 MG TABLET PO (09:06)
[2023-01-08] MEDS: Cholecalciferol (Vitamin D3) 25 MCG TABLET PO (09:06)
[2023-01-08] MEDS: 0.9 % Sodium Chloride Flush 3 ML SYRINGE IVFLUSH (09:06)
[2023-01-08] MEDS: Ezetimibe 10 MG TABLET PO (09:06)
[2023-01-08] MEDS: Morphine Sulfate 4 MG/ML CARTRIDGE 2 MG IVPUSH ×2 (09:16→15:45)
[2023-01-08 11:24] VITALS: BP 130/75; PULSE 89; RESP 20; TEMP 36.6; O2SAT 97
[2023-01-08] MEDS: Ondansetron ODT 8 MG TAB.RAPDIS TRANSLINGU (11:45)
--- NOTE | 2023-01-08 12:23 | P.DS_ITS ---
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 Patient is currently still quite confused and unable to provide HPI.? Father at bedside who is her healthcare proxy and supplies the majority of the HPI.? Patient was apparently in her normal state of health this morning getting ready to go to work.? Patient's son was visiting and noted his mother went out the door to drive to work and then a short time later she was brought back into the house supported by a neighbor.? The neighbor apparently found patient outside laying on the ground next to her car. Pt was confused and minimally responsive, drifting in and out of sleep. EMS called. In the ED pt was awake and alert but confused and slow to respond. Pt can state her name and location but unaware of her situation. Cannot speak in full sentences. Pt has been undergoing radiation therapy with Dr. Aviles. Currently is on a two-week break, set to began radiation again this coming Saturday. In the ED patient was afebrile but tachycardic at 114, tachypneic at 26, and hypoxic satting at 78% RA. Labs were significant for WBC WNL, H&H of 8.4 or 25.6, VBG pH of 7.47, AST of 42, alk-phos of 195, troponin negative.CT?of head showed no evidence of acute intracranial hemorrhage or edematous territorial infarction, however it was suspicious for worsening metastatic disease.? Chest CTA found no evidence for acute or chronic pulmonary embolism, but did note progression of metastasis to lungs, mediastinum, liver, and adrenal gland. EKG demonstrated sinus tachycardia of [address] elevations or depr essions. Pt was treated with IVF. Pt will be admitted to the hospital for treatment and further evaluation of acute toxic metabolic enchephalopathy. Hospital course Patient was admitted for evaluation of Acute toxic metabolic encephalopathy secondary to brain metastasis. CT showed no evidence for acute intracranial hemorrhage or edematous territory infarction, but was suspicious for worsening metastatic disease. started on Decadron 4 mg q8hr. MRI of the brain showed worsening metastasis. Oncology team evaluated her and recommended hospice evaluation who will follow her at home. Scripts for morphine, Ativan for comfort measures. To continue Dexamethasone PO tid. Time Spent with Patient Time attestation: Total time managing care of this patient today ____ minutes. Discharge coordination time: Greater than 30 minutes Quality: Safe Use of Opioids Does Pt have an Active Cancer Diagnosis on the Problem List?: Yes Opioid Measure Date for [facility] Report: 12/09/22 Opioid Measure Time for [facility] Report: 15:12 Quality: Stroke Does the patient have a stroke diagnosis?: No Physical Exam Vital Signs: Vital Signs: Last Vital Signs Temp 97.8 F 01/08/23 11:24 Pulse 89 01/08/23 11:24 Resp 20 01/08/23 11:24 BP 130/75 01/08/23 11:24 Pulse Ox 97 01/08/23 11:24 O2 Del Method Room Air 01/08/23 07:19 O2 Flow Rate 2 01/05/23 03:13 Oxygen Flow Rate 2 01/04/23 21:46 BMI result Body Mass Index 25.5 Const: Other: Constitutional : Awake, interactive, not in distress Neck : Normal inspection, Supple Cardiovascular : RRR, no JVP, no lower extremity edema Respiratory : good bilateral air entry, no crackles, wheezes or rhonchi Gastrointestinal: soft, lax, Normal bowel sounds, Non tender Skin : Warm, Dry Neurological : Alert & disoriented, No focal deficit DS: Data Imaging MRI - head: Radiologist's impression: ITS Impressions Head CT 01/04/23 16:19 IMPRESSION: 1. No evidence of acute intracranial hemorrhage or edematous territorial infarction. 2. Multiple scattered regions of expansile white matter hypoattenuation throughout the bilateral cerebral hemispheres and deep white matter suspicious for progression of underlying metastatic disease. This critical result was discussed with Belén LEVINE at 17:35 on 01/04/2023 and it was ascertained that the content and urgency of the report was understood at the time of direct communication. Chest CTA 01/04/23 17:18 IMPRESSION: 1. No evidence for acute or chronic pulmonary embolism. 2. Progression of metastatic disease as above. VTE: negative. Brain MRI 01/05/23 15:36 IMPRESSION: Innumerable enhancing lesions throughout the cerebral and cerebellar hemispheres as well as throughout the basal ganglia, thalami, and brainstem. The overall number and size of lesions has increased compared with 09/21/2022. Extensive edema is seen throughout the basal ganglia, thalami, and brainstem. No midline shift or herniation. Discharge Plan Discharge Anticipated Discharge Date/Time: 01/08/23 12:19 Patient Disposition: Hospice - Home Discharge Diagnosis: Altered mentation from brain metastases Referrals: Radha RAYA [Outside] - 1 Week Sharon Vega FNP [Primary Care Provider] - 1 Week Discharge Medications: New morphine concentrate 100 mg/5 mL (20 mg/mL) solution 10 mg PO Q4H PRN (Reason: pain) Qty: 30 0RF Rx Instructions: Partial Fill upon patient request. lorazepam [Lorazepam Intensol] 2 mg/mL concentrate 0.5 mg PO Q6H PRN (Reason: anxiety) Qty: 30 0RF dexamethasone 4 mg tablet 4 mg PO TID Qty: 90 0RF haloperidol 0.5 mg tablet 0.5 mg PO Q4H PRN (Reason: nausea/vomiting/agitation) Qty: 30 0RF Continued ezetimibe [Zetia] 10 mg tablet 10 mg PO DAILY Qty: 30 2RF cholecalciferol (vitamin D3) 25 mcg (1,000 unit) tablet 25 mcg PO DAILY Qty: 90 0RF cyclobenzaprine 5 mg Tablet 5 mg PO TID Qty: 60 3RF oxycodone 5 mg Tablet 5 mg PO Q8H PRN (Reason: Breakthrough Pain, Moderate) Qty: 60 0RF Rx Instructions: Partial Fill upon patient request. lorazepam 0.5 mg Tablet 0.5 mg PO TID PRN (Reason: Anxiety) Qty: 50 3RF prochlorperazine maleate 10 mg Tablet 10 mg PO Q8H PRN (Reason: Nausea) ondansetron 8 mg tablet,disintegrating 8 mg PO Q8H PRN (Reason: Nausea) Discharge Orders: Discharge Order (Routine); Ordered 01/08/23 Ordered By: Paulette Carroll Diet: Advance to usual diet Activity on Discharge: As tolerated Stand Alone Forms: Patient Portal Discharge page Care Plan Goals: Read below Health Concerns: Read below Plan of Treatment: Read below Assessment: Admitted to the hospital for altered mentation. brain images showed progression of the metastatic cancer. improved with steroids. You were evaluated by hospice team who will follow you home.
--- NOTE | 2023-01-08 12:59 | MHC.CM.PN ---
Per ROUNDS discussion, Patient will be medically cleared for dc to home today with Hospice. Patient will dc today to her Father's home at [address] [facility] [place] [facility] at 4PM, via [facility]. CM spoke with Father/HCP/Jose L at [phone], who is aware of and in agreement with the dc plan.
== END 2023-01-08 16:00 | disposition hospice, home (50) | DRG 52 ==
LOC: HO.ED 16:56 → HO.EDOVER 20:52 → HO.IMC 01-05 02:00
PROVIDERS: Physician Assistant; Admitting Provider Student in an Organized Health Care Education/Training Program; Emergency Provider Student in an Organized Health Care Education/Training Program; PCP Nurse Practitioner Family; Visit Provider Student in an Organized Health Care Education/Training Program
DX: G92.8 Other toxic encephalopathy (principal); C78.02 Secondary malignant neoplasm of left lung; C56.9 Malignant neoplasm of unspecified ovary; C79.31 Secondary malignant neoplasm of brain; C78.7 Secondary malignant neoplasm of liver and intrahepatic bile duct; D63.0 Anemia in neoplastic disease; F10.11 Alcohol abuse, in remission; F41.9 Anxiety disorder, unspecified; Z20.822 Contact with and (suspected) exposure to COVID-19; Z79.899 Other long term (current) drug therapy
CPT/HCPCS: 36415; 70450; 70553; 71275; 80048; 80053; 80307; 82077; 82140; 82550; 82803; 84443; 84484; 85025; 85027; 86850; 86900; 86901; 87635; 93005; 96360; 96361; 97162; 99285; A9585; J1100; J1650; J2060; J2270; Q9967